=== PATIENT | female | born 1950 | race Caucasian/White ===

== ENCOUNTER 2023-07-16 17:43 | Emergency (ER) | payer MEDICARE, SELFPAY ==
--- NOTE | ~2023-07-16 | XR_ITS ---
EXAMINATION: X-RAY BILATERAL KNEES CLINICAL INFORMATION: Fall. COMPARISON: None available. TECHNIQUE: 4 views of each knee. FINDINGS: Right knee: Partially imaged lateral fixation plate in the tibia with multiple traversing screws, no evidence of hardware fracture or complication in the included portions. No acute fractures or subluxation. Mild tricompartmental degenerative osteoarthritis. No joint effusion. Mild vascular calcifications. Left knee: No acute fracture or subluxation. Mild tricompartmental degenerative osteoarthritis. Small spurring along the upper pole of the patella. No joint effusion. Mild vascular calcifications. XR/XR knee RT 4V IMPRESSION: 1. No acute fractures or subluxation. 2. Mild bilateral tricompartmental degenerative osteoarthritis. 3. Partially imaged right tibial fixation hardware without evidence of hardware complication.
--- NOTE | ~2023-07-16 | XR_ITS ---
EXAMINATION: X-RAY RIGHT AND LEFT HANDS CLINICAL INFORMATION: Fall. COMPARISON: None available. TECHNIQUE: 4 views of each hand were obtained. FINDINGS: No evidence of acute fractures or subluxation. Mild multifocal degenerative osteoarthritis with joint space narrowing and minimal marginal osteophytes, more prominent in the left hand. No osseous erosions. No abnormal soft tissue calcifications. No unexpected radiopaque foreign bodies. XR/XR hand wrist RT IMPRESSION: No acute fractures or subluxation seen in either hand. Mild multifocal degenerative osteoarthritis.
--- NOTE | ~2023-07-16 | XR_ITS ---
EXAMINATION: X-RAY BILATERAL KNEES CLINICAL INFORMATION: Fall. COMPARISON: None available. TECHNIQUE: 4 views of each knee. FINDINGS: Right knee: Partially imaged lateral fixation plate in the tibia with multiple traversing screws, no evidence of hardware fracture or complication in the included portions. No acute fractures or subluxation. Mild tricompartmental degenerative osteoarthritis. No joint effusion. Mild vascular calcifications. Left knee: No acute fracture or subluxation. Mild tricompartmental degenerative osteoarthritis. Small spurring along the upper pole of the patella. No joint effusion. Mild vascular calcifications. XR/XR knee LT 4V IMPRESSION: 1. No acute fractures or subluxation. 2. Mild bilateral tricompartmental degenerative osteoarthritis. 3. Partially imaged right tibial fixation hardware without evidence of hardware complication.
--- NOTE | ~2023-07-16 | CT_ITS ---
EXAMINATION: CT CHEST, ABDOMEN AND PELVIS WITHOUT CONTRAST. CLINICAL INFORMATION: Reason for Exam Fall. Rib fractures. COMPARISON: No pertinent prior studies are available for comparison. TECHNIQUE: Multidetector volumetric imaging was performed from the thoracic inlet through the pubic symphysis following the administration of: No contrast reaction reported Oral contrast: No Intravenous contrast: None Sagittal and coronal reformatted images were obtained on the technologist workstation. In addition, thin section, high resolution reconstruction, targeted reformatted images through the thoracic and lumbar spine were obtained with coronal and sagittal high resolution reformatted images as well. Total exam dose-length product 503 mGy-cm FINDINGS: CHEST: MEDIASTINUM: There is no mediastinal hematoma. There is no pericardial fluid. There are no enlarged lymph nodes. No suspicious abnormality esophagus VASCULAR: There is moderate coronary artery calcification. There is no thoracic aortic aneurysm. The main pulmonary artery is normal caliber. LUNG: No suspicious abnormality of the trachea. There is moderate to marked centrilobular emphysema. There is some thickening of the interlobular septa. There is no suspicious mass or evidence of pulmonary contusion. There is biapical thickening which is likely postinflammatory. PLEURA: No pneumothorax. No significant pleural fluid. Biapical pleural scarring suspected. CHEST WALL/AXILLA: No large chest wall hematoma ABDOMEN/PELVIS : LIVER : No evidence of acute liver injury. The liver contour is smooth. GALLBLADDER, AND BILIARY TREE THERE are some hypodensities near the expected region of the gallbladder. There is no biliary dilation. PANCREAS: No suspicious abnormality. SPLEEN: No evidence of splenic injury. ADRENAL GLANDS: No suspicious abnormality KIDNEYS AND URETERS: No evidence of a renal injury. There is a nonobstructing 0.4 cm calculus at the junction of the upper pole and interpolar right kidney. There is a 1 mm nonobstructing right upper pole calculus. URINARY BLADDER: No suspicious abnormality GASTROINTESTINAL TRACT: No localized colonic wall thickening. The appendix is within normal limits. There is no small bowel dilation. No suspicious abnormality of the incompletely distended stomach. No large mesenteric hematoma. VASCULAR STRUCTURES: There is no abdominal aortic aneurysm or evidence of retroperitoneal hematoma. LYMPH NODES: There are no measurably enlarged abdominal or pelvic lymph nodes. PELVIC VISCERA: There is a pessary present. The uterus is not definitely identified. No suspicious adnexal mass or collection FREE FLUID: There is no evidence of hemoperitoneum or significant intraperitoneal fluid. ABDOMINAL WALL: No significant hernia is appreciated. OSSEOUS STRUCTURES : No fracture demonstrated. No subluxation. THORACIC AND LUMBAR SPINE: No clavicle or scapula fracture. No displaced rib fracture seen. No sternal fracture seen. Normal sagittal alignment of the thoracic and lumbar spine. Vertebral body and disc heights are maintained; no compression fracture. Posterior elements intact. Mild marginal osteophytes No sacral or pelvic fracture, The visualized hips are intact. CT/CT abdomen pelvis wo IV con IMPRESSION: No mediastinal hematoma or pneumothorax. No evidence of hemoperitoneum or definite solid visceral injury. No acute fracture or subluxation. Emphysema. Biapical thickening likely postinflammatory
--- NOTE | ~2023-07-16 | CT_ITS ---
EXAMINATION: CT HEAD WITHOUT CONTRAST CT CERVICAL SPINE WITHOUT CONTRAST CT MAXILLOFACIAL WITHOUT CONTRAST CLINICAL INFORMATION: Fall. Head trauma. Facial trauma. COMPARISON: None. TECHNIQUE: Multidetector CT examination of the head is performed without contrast. Multidetector CT of the cervical spine without contrast. Multidetector CT of the maxillofacial region without contrast. Multiplanar postprocessing This CT examination was performed using dose optimization techniques as appropriate, variously including the following: *Automated exposure control *Adjustment of mA and/or kV according to patient size (this includes techniques or standardized protocols for targeted exams where dose is matched to indication/reason for exam; i.e. extremities or head) *Use of iterative reconstruction technique DLP: 956 mGy-cm FINDINGS: Head CT: There is no evidence of a recent intracranial hemorrhage or extra-axial collection. The midline structures are nondisplaced. The ventricles, cisterns, and sulci are within normal limits. There is no evidence of an intra-axial mass. There are no suspicious focal areas of abnormal brain attenuation. The wilson-white interface is within normal limits. There is no evidence of acute territorial infarct. The paranasal sinuses and mastoids are within normal limits. No fracture or fluid level demonstrated Cervical CT: There is no fracture or subluxation. No suspicious focal lesion or loss of volume. Mild to moderate narrowing of the C5/C6 and C6/C7 discs. There is some facet disease and uncovertebral joint spurring. There is pleural thickening in the apex bilaterally which is likely postinflammatory No suspicious abnormality in the region of the thyroid Maxillofacial CT: There is no acute maxillofacial fracture. There is extensive metallic artifact. No suspicious abnormality in the visualized portions of the brain globes, lenses, orbits, level of the vocal cords, epiglottis, oropharynx. The parapharyngeal tissue planes are maintained. No disruption of the temporomandibular joints. The zygomatic arches appear intact. No convincing nasal fracture. The pterygoids appear intact. There is perforation of the nasal septum which is likely chronic. CT/CT cervical spine wo IV con IMPRESSION: 1. There is no evidence of a recent intracranial hemorrhage. 2. No acute infarct. 3. No acute fracture or subluxation of the cervical spine 4. No acute maxillofacial fracture. Metal artifact.
--- NOTE | ~2023-07-16 | XR_ITS ---
EXAMINATION: X-RAY RIGHT AND LEFT HANDS CLINICAL INFORMATION: Fall. COMPARISON: None available. TECHNIQUE: 4 views of each hand were obtained. FINDINGS: No evidence of acute fractures or subluxation. Mild multifocal degenerative osteoarthritis with joint space narrowing and minimal marginal osteophytes, more prominent in the left hand. No osseous erosions. No abnormal soft tissue calcifications. No unexpected radiopaque foreign bodies. XR/XR hand wrist LT IMPRESSION: No acute fractures or subluxation seen in either hand. Mild multifocal degenerative osteoarthritis.
[2023-07-16 17:57] VITALS: BP 178/61; PULSE 70; RESP 18; TEMP 36.4; O2SAT 96; BMI 17.9
--- NOTE | 2023-07-16 18:04 | ED.GENADULT ---
HPI - General Adult General Chief complaint: Fall Stated complaint: FELL DOWN AND HIT HEAD/ON BLOOD THINNERS Time Seen by Provider: 07/16/23 17:57 History of Present Illness HPI narrative: The patient is 72-year-old woman with a history of paroxysmal atrial fibrillation on anticoagulation who tripped outside of her own house today. She apparently tripped on 1 of the straps connected to the cover of her in ground pool. She fell on the concrete walkway around the pool. She landed primarily on her right side and struck her head. She had no loss of consciousness. She presents to the emergency room for evaluation of her head injury as well as pain on the right side of her chest that hurts with breathing. She reports a sense of a small intraoral laceration inside the right upper lip. She also reports some abrasions to her hands. 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 Related Data Allergies Allergy/AdvReac Type Severity Reaction Status Date / Time Penicillins Allergy Hives Verified 07/16/23 17:57 Review of Systems Review of Systems: Yes all other systems are reviewed and are negative [facility] Social History Social History Alcohol intake: current Alcohol intake frequency: holidays/special occasions only Smoked in Last 30 Days: No Use of substances other than those prescribed or required for medical reasons: No Advance Directives: No Advance Directives Information Provided: No Physical Exam ED Vital Signs: Vital Signs - 24 hr 07/16/23 17:57 07/16/23 20:49 07/16/23 21:49 Temperature 97.6 F Pulse Rate 70 60 65 Respiratory Rate 18 16 18 Blood Pressure 178/61 H 177/64 H 162/72 H Pulse Oximetry 96 97 96 Oxygen Delivery Method Room Air Room Air Room Air BMI result Body Mass Index 17.9 Const Other: The patient is a thin 72-year-old who was awake and alert. She has obvious signs of bruising and abrasions but does not appear severely injured. HENMT Other: There is soft tissue swelling and abrasion to the skin around the right temporal region. There is very small intraoral laceration just inside the right upper lip. Dentition is intact. Patient has left-sided facial weakness which is chronic. Eyes Other: Pupils are round equal, extraocular movements are intact, no sign of ocular injury Neck Other: Some mild diffuse posterior C-spine tenderness. Chest Other: Right-sided chest wall tenderness without crepitus or subcutaneous emphysema Resp Other: Lungs are clear bilaterally. No increased work of breathing. She seems to have pain with breathing however. Cardio Other: Patient has regular rate and rhythm no murmur. GI Other: Abdomen is soft nontender Skin Other: Abrasions on both palms. Some soft tissue swelling and abrasions to the right temporal skin. Neuro Other: The patient is awake, alert, oriented, appropriate. There is left-sided facial weakness which is apparently chronic. She is otherwise neurologically intact Extrem Other: Patient has abrasions to the palms of both hands. No focal soft tissue swelling or obvious focal bony tenderness. Course Course Course Narrative: 72-year-old female presents ED for fall while trying to put [employer] lights. Patient hit head no loss of consciousness. Patient's secondary complaint right rib pain. No signs of obvious bruising. images ordered. positive for right eyebrow abrasions Medical Decision Making Medical Decision Making [facility] Narrative: Patient is a 72-year-old woman on anticoagulation for paroxysmal AFib who had a fall onto concrete. had radiology imaging ordered and resulted prior to my exam. This included a CT of the head, facial bones, cervical spine, chest, and abdomen and pelvis. Additionally she had x-rays of the knees and hands. All these studies are negative. Clinically the patient looks well. The intraoral laceration is too small to require sutures or other acute care. She is is not up-to-date on her tetanus she believes. She will therefore be given a tetanus shot. Otherwise she looks well enough for discharge. Discharge Plan Discharge Clinical Impression: Fall, Head injury, Abrasion of face, Intraoral laceration, Contusion of right chest wall, Hand abrasion Patient Disposition: Home, Self-Care Additional Instructions: You had CT scans of your brain, your facial bones, the bones of your neck, and also of your torso. These are all very reassuring. There is no sign of fractures or internal injuries. Additionally the x-rays of your hands and wrists show no sign of fractures. You seem to have bruises and abrasions but no more serious injuries. You have been given a tetanus update. Although you do not have any dangerous injury will likely be sore over the next several days. You may feel more sore before you start to feel better. Rest and take it easy. Use acetaminophen as needed for pain. Please follow-up with your regular doctor if any ongoing concerns return to the emergency department significantly worse. Referrals: Ani Baires MD [Primary Care Provider] - (Follow-up for a fall) Interventions: ED Discharge Assessment Last Done: 07/16/23 21:58 Discharge Date/Time: 07/16/23 21:59
[2023-07-16 20:49] VITALS: BP 177/64; PULSE 60; RESP 16; O2SAT 97
[2023-07-16 21:49] VITALS: BP 162/72; PULSE 65; RESP 18; O2SAT 96
== END 2023-07-16 21:59 | disposition home or self-care (01) ==
PROVIDERS: Emergency Provider Emergency Medicine; PCP Internal Medicine
DX: S00.81XA Abrasion of other part of head, initial encounter (principal); S20.211A Contusion of right front wall of thorax, initial encounter; S60.519A Abrasion of unspecified hand, initial encounter; W19.XXXA Unspecified fall, initial encounter; Y93.9 Activity, unspecified; Y92.9 Unspecified place or not applicable; Y99.9 Unspecified external cause status; I48.0 Paroxysmal atrial fibrillation; Z79.01 Long term (current) use of anticoagulants
CPT/HCPCS: 70450; 70486; 71250; 72125; 73110; 73130; 73564; 74176; 90471; 99284; 99285

== ENCOUNTER 2023-07-30 14:17 | Emergency (ER) | payer MEDICARE, SELFPAY ==
--- NOTE | ~2023-07-30 | XR_ITS ---
Examination: Bilateral knee. CLINICAL INDICATION: Fall. COMPARISON: Bilateral knee 07/16/2023. TECHNIQUE: 4 views each knee. RIGHT KNEE: There is a lateral tibial fixation plate and screws stabilizing old proximal tibial fracture. No hardware malfunction seen there is mild loss of medial and patellofemoral compartment joint space. There are no loose bodies or joint effusion. No visible acute fracture or dislocation seen. Left knee: There is mild loss of tricompartment joint space with no bony erosive changes. No visible acute fracture or dislocation seen. No joint effusion. There are no loose bodies. The soft tissues are normal. XR/XR knee RT 2V IMPRESSION: Mild bilateral tricompartmental degenerative arthritic changes. Right proximal tibial hardware is intact. There is no hardware malfunction. There is no acute fracture dislocation in either knee.
--- NOTE | ~2023-07-30 | XR_ITS ---
Examination: Bilateral knee. CLINICAL INDICATION: Fall. COMPARISON: Bilateral knee 07/16/2023. TECHNIQUE: 4 views each knee. RIGHT KNEE: There is a lateral tibial fixation plate and screws stabilizing old proximal tibial fracture. No hardware malfunction seen there is mild loss of medial and patellofemoral compartment joint space. There are no loose bodies or joint effusion. No visible acute fracture or dislocation seen. Left knee: There is mild loss of tricompartment joint space with no bony erosive changes. No visible acute fracture or dislocation seen. No joint effusion. There are no loose bodies. The soft tissues are normal. XR/XR knee LT 2V IMPRESSION: Mild bilateral tricompartmental degenerative arthritic changes. Right proximal tibial hardware is intact. There is no hardware malfunction. There is no acute fracture dislocation in either knee.
--- NOTE | ~2023-07-30 | CT_ITS ---
EXAMINATION: CT HEAD WITHOUT CONTRAST CT CERVICAL SPINE WITHOUT CONTRAST CLINICAL INFORMATION: Fall. Head strike. Patient on blood thinners. COMPARISON: CT head from 07/16/2023. TECHNIQUE: Contiguous axial imaging was performed from the skull base to vertex without intravenous administration of contrast. Contiguous axial imaging was performed from the upper chest through the skull base without intravenous administration of contrast. Coronal and sagittal reformats were obtained at the acquisition workstation. This CT examination was performed using dose optimization techniques as appropriate, variously including the following: *Automated exposure control. *Adjustment of mA and/or kV according to patient size (this includes techniques or standardized protocols for targeted exams where dose is matched to indication/reason for exam; i.e. extremities or head). *Use of iterative reconstruction technique. DLP: 793 mGy-cm FINDINGS: Head: There is no evidence of acute intracranial hemorrhage or edematous territorial infarction. Cadena-white matter differentiation is preserved. A few foci of hypoattenuation in the periventricular and deep white matter are consistent with mild microangiopathy. Proportional prominence of the ventricles and sulcal spaces without evidence of obstructive hydrocephalus. No abnormal mass effect or midline shift. No extra-axial fluid collections. Mild edema/hematoma in the right periorbital, preseptal soft tissues. No associated acute osseous abnormalities. Mild mucosal thickening of the paranasal sinuses. The mastoid air cells and middle ear cavities are clear. Dehiscence of the cartilaginous nasal septum. Cervical Spine: The atlantooccipital and atlantoaxial articulations remain well aligned. Mild reversal the normal cervical lordosis centered on C4-C5. Mild degenerative anterolisthesis of C4 on C5. Otherwise, there is anatomic alignment of the vertebral bodies and posterior elements. No evidence of acute fracture or subluxation. The vertebral body heights are maintained. Advanced degenerative disc disease at C5-C6 and C6-C7. Moderate degenerative disease from C2-C5. Facet and uncovertebral joint arthropathy leads to osseous encroachment on the neural foramina from C3-C7. There is no prevertebral soft tissue swelling. The thyroid gland and remaining cervical soft tissues are within normal limits. Extensive centrilobular emphysema the visualized upper lungs. The lung apices demonstrate no abnormalities. CT/CT cervical spine wo IV con IMPRESSION: 1. No evidence of acute intracranial hemorrhage or edematous territorial infarction. Mild underlying microangiopathy and generalized cerebral volume loss. 2. No evidence of acute fracture or traumatic subluxation of the cervical spine. Moderate multilevel degenerative spondyloarthropathy of the cervical spine. 3. Mild edema/hematoma in the right periorbital, preseptal soft tissues. No associated osseous abnormalities. 4. Emphysema.
[2023-07-30 14:19] VITALS: BP 176/84; PULSE 67; RESP 18; TEMP 36.4; O2SAT 95; BMI 17.4
[2023-07-30 15:52] VITALS: BP 167/87; PULSE 70; RESP 18; O2SAT 96
--- NOTE | 2023-07-30 16:08 | ED.FALL ---
HPI - Fall General Chief Complaint: Fall Stated Complaint: Fall/Head inj on thinners Time Seen by Provider: 07/30/23 16:03 Source: patient Mode of arrival: ambulatory Limitations: no limitations History of Present Illness HPI Narrative: Patient comes to the emergency room complaining of a mechanical fall. Patient states that she was walking out in the parking lot, there was a pothole on the ground, patient was caring a box and did not see the hole. Patient walked into the hole in tripped. Patient hit the right side of her forehead. Patient has a small superficial laceration, not bleeding. Patient is on Eliquis for atrial fibrillation. About 2 weeks ago, patient sustained a fall injuring the same side of the forehead/eyebrow. Patient states that she has no neck pain, no headache otherwise patient feels well. Patient complaining of mild bilateral knee pain but able to ambulate. Related Data Allergies Allergy/AdvReac Type Severity Reaction Status Date / Time Penicillins Allergy Hives Verified 07/30/23 14:19 Review of Systems Review of Systems: Constitutional : No Weight loss, No Fever, No Chills, No Night Sweats, No Fatigue, No Malaise ENT/Mouth : No Hearing loss, No Ear Pain, No Nasal Congestion, No Sinus Pain, No Hoarseness, No sore throat, No Rhinorrhea, No Swallowing Difficulty Eyes: No Eye Pain, No Swelling, No Redness, No Foreign Body, No Discharge, No Vision Changes Cardiovascular : No Chest Pain, No SOB, No Dyspnea on Exertion, No Orthopnea, No Edema, No Palpitations Respiratory : No Cough, No Sputum, No Wheezing, No Smoke Exposure, No Dyspnea Gastrointestinal : No Nausea, No Vomiting, No Diarrhea, No Constipation, No abdominal Pain, No Hematochezia, No Melena Genitourinary : no irregular bleeding, No Dysuria, No Urinary Frequency, No Hematuria, No Urinary Incontinence, No Urgency, No Flank Pain, No Urinary Flow Changes, No Hesitancy Musculoskeletal : No joint pain, No Myalgias, No Joint Swelling Skin : Small laceration to the right eyebrow Neuro : No Weakness, No Numbness, No Paresthesias, No Loss of Consciousness, No Dizziness, No Headache Psych : No Anxiety/Panic, No Depression, No SI/HI/AH/VH, No Social Issues, Heme/Lymph: No Bruising, No Bleeding,No Lymphadenopathy Endocrine : No Polyuria, No Polydipsia, No Temperature Intolerance [facility] Past Medical History Medical History (Updated 07/30/23 @ 17:15 by Jo-Ann Rosenberg MD) 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 Oriented X3. No acute distress. Eyes: Pupils equal, round and reactive to light. Patient's ocular movements are intact and painless ENT: Pharynx normal. Neck: Normal inspection. Neck supple. No lymph nodes noted. No crepitus CVS: Normal heart rate and rhythm. Pulses normal. Normal S1 and S2 Respiratory: No respiratory distress. Breath sounds normal. No Wheezing. No rales Abdomen: Soft and nontender. No rigidity. No distention. Skin: Skin warm and dry. Normal skin color. Normal skin turgor. There is a 0.5 cm superficial laceration below the right eyebrow, mild swelling but no bleeding. Extremities: No lower extremity edema. No Lacerations. No Rash Neuro: Oriented X 3. No motor deficit. No sensory deficit. Moving all extremities. No slurred speech. CN 2 through 12 grossly intact Psych: calm, cooperative, normal affect Medical Decision Making Medical Decision Making MDM Narrative: -patient is neurologically intact -my interpretation of x-rays of the knees: No fracture, normal alignment, hardware present -CT scan of the head and cervical spine pending -my interpretation of head CT: No intracranial bleed. -patient is asymptomatic, patient feeling much better. Differential Diagnosis Differential Diagnoses: The differential diagnosis associated with the presentation includes (Contusion, abrasion, intracranial bleed) Admission/Observation Consideration of admission/observation: Escalation of care including admission/observation considered (Patient has had 2 major falls in 2 weeks, given initial history and presentation, patient was considered) Independent Interpretation I performed an independent interpretation of an: CT Scan Radiology Impression Discussion of test interpretation with radiology: I have reviewed the radiologist's reading. Radiologist Impression: FINDINGS: Head: There is no evidence of acute intracranial hemorrhage or edematous territorial infarction. Cadena-white matter differentiation is preserved. A few foci of hypoattenuation in the periventricular and deep white matter are consistent with mild microangiopathy. Proportional prominence of the ventricles and sulcal spaces without evidence of obstructive hydrocephalus. No abnormal mass effect or midline shift. No extra-axial fluid collections. Mild edema/hematoma in the right periorbital, preseptal soft tissues. No associated acute osseous abnormalities. Mild mucosal thickening of the paranasal sinuses. The mastoid air cells and middle ear cavities are clear. Dehiscence of the cartilaginous nasal septum. Cervical Spine: The atlantooccipital and atlantoaxial articulations remain well aligned. Mild reversal the normal cervical lordosis centered on C4-C5. Mild degenerative anterolisthesis of C4 on C5. Otherwise, there is anatomic alignment of the vertebral bodies and posterior elements. No evidence of acute fracture or subluxation. The vertebral body heights are maintained. Advanced degenerative disc disease at C5-C6 and C6-C7. Moderate degenerative disease from C2-C5. Facet and uncovertebral joint arthropathy leads to osseous encroachment on the neural foramina from C3-C7. There is no prevertebral soft tissue swelling. The thyroid gland and remaining cervical soft tissues are within normal limits. Extensive centrilobular emphysema the visualized upper lungs. The lung apices demonstrate no abnormalities. CT/CT head/brain wo IV con IMPRESSION: 1. No evidence of acute intracranial hemorrhage or edematous territorial infarction. Mild underlying microangiopathy and generalized cerebral volume loss. 2. No evidence of acute fracture or traumatic subluxation of the cervical spine. Moderate multilevel degenerative spondyloarthropathy of the cervical spine. 3. Mild edema/hematoma in the right periorbital, preseptal soft tissues. No associated osseous abnormalities. 4. Emphysema. Critical Care Time Critical Care Time Critical Care Time: Yes Total Critical Care Time: 30 Attestation: I have personally provided critical care time. Time includes review of lab data, radiology results, discussion with consultants, and monitoring for potential decompensation. Intervention performed as documented. Discharge Plan Discharge Clinical Impression: Fall, Contusion Patient Disposition: Home, Self-Care Instructions: Contusion in Adults (ED), Fall Prevention (ED) Additional Instructions: Please follow-up with your primary care physician tomorrow. If you have any worsening or new symptoms, please return to the emergency room or call 911 Stand Alone Forms: Work/School Release
== END 2023-07-30 17:23 | disposition home or self-care (01) ==
PROVIDERS: Emergency Provider Emergency Medicine; PCP Internal Medicine
DX: S00.93XA Contusion of unspecified part of head, initial encounter (principal); W01.0XXA Fall on same level from slipping, tripping and stumbling without subsequent striking against object, initial encounter; Y93.89 Activity, other specified; Y92.9 Unspecified place or not applicable; Y99.9 Unspecified external cause status; I48.91 Unspecified atrial fibrillation; Z79.01 Long term (current) use of anticoagulants; M25.562 Pain in left knee; M25.561 Pain in right knee
CPT/HCPCS: 70450; 72125; 73560; 99284

== ENCOUNTER 2025-06-02 23:20 | Emergency (ER) | payer MEDICARE, SELFPAY ==
--- OUTSIDE RECORDS SUMMARY | 2024-05-14 05:30 | XMS_ITS ---
[facility] Address [address] [place] [address] Care Team Providers Care Mainframe Systems Engineer Name Role Phone HENSLEYMAURIZIO MANDEL Unavailable [phone] Medications Medication SIG (Take, Route, Frequency, Duration) Notes Start Date End Date Status Metoprolol Tartrate 25 MG 1 tablet with food Orally Twice a day Active Fluticasone Propionate 50 MCG/ACT SPRAY SPRAY 1 SPRAY INTO EACH NOSTRIL EVERY DAY FOR 30 DAYS; Duration: 8 Active Eliquis 2.5 MG as directed Orally Active Montelukast Sodium 10 MG 1 tablet Orally Once a day; Duration: 30 day(s) Active Crestor 10 MG 1 tablet Orally Once a day; Duration: 90 days Active Dupixent 200 MG/1.14ML as directed Subcutaneous Active Benzonatate 200 MG 1 capsule Orally Thr ee times a day; Duration: 30 days 03/02/2023 Active Multi Complete Activ e Estradiol 0.0375 MG/24HR 1 patch to skin Transdermal Two times a Week Active Encounters Encounter Location Date Provider Diagnosis [facility] [address] [place] [address] 05/14/2024 MAURIZIO HENSLEY Hyperlipidemia, unspecified E78.5 Assessments Encounter Date Diagnosis (ICD Code) Assessment Notes Treatment Notes Treatment Clinical Notes Section Notes 05/14/2024 Hyperlipidemia, unspecified (ICD-10 - E78.5) 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 #Hyperlipidemia: In the setting of family history of hyperlipidemia in mom. #Eczema: (Psoriasis was diagnosed in 2016, sees brick veneer maker,Her Skin rash was not improving over the years, her brick veneer maker suggested biopsy which showed eczema and not psoriasis) she is on dupixent since early 2021 and her skin lesions are healing very well. #Atrial fibrillation, diagnosed in 2016, sees cardiology, on eliques and metoprolol, and cautioned against falls. #Vaginal atrophy, on estrogen patch, history of Uterine prolapse/Fibroids status post reconstructive surgery/Including hysterectomy in 2002. 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 #Up to date on screening mammograms. #Never had a screening colonoscopy/discu ssed cologuard kit, Patient declines Plan Of Treatment Next Appt Details Provider Name:RADHACRISTOBAL AYDEN, 09:15:00 AM, [address] [place] [address], [place], [address], Progress Notes * APODACA, KEVIN KDOB:[birth year] (74 yo F)Acc No.[id number]:05/14/2024 CPE Patient: KEVIN FRENCH Provider: Savannah HENSLEY MD :1950 A ge:73 Y S ex:Female Date:05/14/2024 Address:[address] [place], [place] [id number] Subjective: * Chief Complaints: * * Medical History: * Medications: T aking Benzonatate 200 MG Capsule 1 capsule Orally Three times a day , Taking Dupixent 200 MG/1.14ML Solution Prefilled Syringe as directed Subcutaneous , Taking Multi Complete , Taking Estradiol 0.0375 MG/24HR Patch Twice Weekly 1 patch to skin Transdermal Two times a Week , Taking Metoprolol Tartrate 25 MG Tablet 1 tablet with food Orally Twice a day , Taking Eliquis 2.5 MG Tablet as directed Orally , Taking Fluticasone Propionate 50 MCG/ACT Suspension SPRAY SPRAY 1 SPRAY INTO EACH NOSTRIL EVERY DAY FOR 30 DAYS , Taking Crestor 10 MG Tablet 1 tablet Orally Once a day , Taking Montelukast Sodium 10 MG Tablet 1 tablet Orally Once a day Objective: * Vitals: Assessment: * Assessment: 1. 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 #Hyperlipidemia: In the setting of family history of hyperlipidemia in mom. #Eczema: (Psoriasis was diagnosed in 2015, sees brick veneer maker,Her Skin rash was not improving over the years, her brick veneer maker suggested biopsy which showed eczema and not psoriasis) she is on dupixent since early 2021 and her skin lesions are healing very well. #Atrial fibrillation, diagnosed in 2016, sees cardiology, on eliques and metoprolol, and cautioned against falls. #Vaginal atrophy, on estrogen patch, history of Uterine prolapse/Fibroids status post reconstructive surgery/Including hysterectomy in 2002. 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 #Up to date on screening mammograms. #Never had a screening colonoscopy/discussed cologuard kit, Patient declines. Plan: * Treatment: * Procedure Codes: 9 9199 NO SHOW OFFICE VISIT * Images: Billing Information: * Visit Code: * Procedure Codes: 77008 NO SHOW OFFICE VISIT. Care Plan Details* * Electronic signature of SHIRIN HENSLEY on 06/03/2025 at 12:54 AM EDT Sign off status: Pending * Provider: Savannah HENSLEY MD Date: Generated for Navi caceres/Bird/Lizz on: 12:54 AM EDT
--- OUTSIDE RECORDS SUMMARY | 2024-10-05 07:45 | XMS_ITS ---
Author Organization [facility] [address] Address [address] [place] [address] Care Team Providers Care Radio/Tv Technician Name Role Phone HENSLEYMAURIZIO MANDEL Unavailable [phone] SONALI CEBALLOS Unavailable [phone] REASON FOR VISIT flu-like symptoms x3 days Medications Medication SIG (Take, Route, Frequency, Duration) Notes Start Date End Date Status Montelukast Sodium 10 MG 1 tablet Orally Once a day; Duration: 30 day(s) Active Myrbetriq 25 MG 1 tablet Orally Once a day; Duration: 90 days 06/11/2024 Active Fluticasone Propionate 50 MCG/ACT SPRAY SPRAY 1 SPRAY INTO EACH NOSTRIL EVERY DAY FOR 30 DAYS; Duration: 8 Active Eliquis 2.5 MG as directed Orally Active Crestor 10 MG 1 tablet Orally Once a day; Duration: 90 days Active Metoprolol Tartrate 25 MG 1 tablet with food Orally Twice a day Active Estradiol 0.0375 MG/24HR 1 patch to skin Transdermal Two times a Week Active Multi Complete Activ e Dupixent 200 MG/1.14ML as directed Subcutaneous Active Mirabegron ER 25 MG 1 tablet Orally Once a day Active Encounters Encounter Location Date Provider Diagnosis [facility] [address] [place] [address] 10/05/2024 SONALI CEBALLOS Plan Of Treatment Next Appt Details Provider Name:MAURIZIO HENSLEY, 09:15:00 AM, [address], [place], [address], Progress Notes * KEVIN APODACA KDOB:[birth year] (74 yo F)Acc No.[id number]:10/05/2024 Progress Notes Patient: KEVIN FRENCH Provider: Carroll CEBALLOS NP :1950 A ge:73 Y S ex:Female Date:10/05/2024 Address:[address] [place] [address], [id number] Subjective: * Chief Complaints: * 1 . Flu-like symptoms x3 days. * HPI: C onstitutional: Patient is here today for sick visit evaluation Patient seen and examined. Full past medical history, social history, family history, allergies and current medications were reviewed and updated. Acute Concerns/Problem List: 10/05/2024. * ROS: A ll Other Systems: Review of Systems (ROS) A ll others negative except those mentioned in HPI. * Medical History: * Medications: T aking Mirabegron ER 25 MG Tablet Extended Release 24 Hour 1 tablet Orally Once a day , Taking Dupixent 200 MG/1.14ML [...] EVERY DAY FOR 30 DAYS , Taking Myrbetriq 25 MG Tablet Extended Release 24 Hour 1 tablet Orally Once a day , Taking Montelukast Sodium 10 MG Tablet 1 tablet Orally Once a day , Taking Crestor 10 MG Tablet 1 tablet Orally Once a day Objective: * Vitals: Assessment: Plan: * Treatment: Care Plan: * Problems: * Images: Billing Information: * Visit Code: * Procedure Codes: Care Plan Details* * Electronic signature of LUCAS CEBALLOS on 06/03/2025 at 12:54 AM EDT Sign off status: Pending * Provider: Carroll CEBALLOS NP Date: 0 10/05/2024 Generated for Navi caceres/Brid/Lizz on: 1 12:54 AM EDT History and Physical Notes * HPI (History of Present Illness) Category Sub-Category Detail Notes Category Not es Constitutional Patient is here today for sick visit evaluation Patient seen and examined. Full past medical history, social history, family history, allergies and current medications were reviewed and updated. Acute Concerns/Problem List: 10/05/2024
--- OUTSIDE RECORDS SUMMARY | 2025-05-07 10:00 | XMS_ITS ---
Author Organization [facility] [address] Address [address] [place] [address] Care Team Providers Care Group Therapy Counselor Name Role Phone MAURIZIO HENSLEY Unavailable [phone] ELY KIM Unavailable [phone] REASON FOR VISIT cough, sorethroat and congestion Medications Medication SIG (Take, Route, Frequency, Duration) Notes Start Date End Date Status Eliquis 2.5 MG as directed Orally Active Fluticasone Propionate 50 MCG/ACT SPRAY SPRAY 1 SPRAY INTO EACH NOSTRIL EVERY DAY FOR 30 DAYS; Duration: 8 Active Mirabegron ER 25 MG TAKE 1 TABLET BY GRICELDA EVERY DAY FOR 90 DAYS; Duration: 90 Active Crestor 10 MG 1 tablet Orally Once a day; Duration: 90 days Active Montelukast Sodium 10 MG 1 tablet Orally Once a day; Duration: 30 day(s) Active Dupixent 200 MG/1.14ML as directed Subcutaneous Active Multi Complete Activ e Estradiol 0.0375 MG/24HR 1 patch to skin Transdermal Two times a Week Active Metoprolol Tartrate 25 MG 1 tablet with food Orally Twice a day Active Encounters Encounter Location Date Provider [facility] [address] [place] [address] 05/07/2025 ELY KIM Plan Of Treatment Next Appt Details Provider Name:MAURIZIO HENSLEY, 09:15:00 AM, [address], [place], [address], Progress Notes * KEVIN APODACA KDOB:[birth year] (74 yo F)Acc No.[id number]:05/07/2025 Progress Notes Patient: KEVIN FRENCH Provider: Sekou HERNANDEZ PA-C :1950 A ge:74 Y S ex:Female Date:05/07/2025 Address:[address] [place] [address] [place], [id number] Subjective: * Chief Complaints: * 1 . Cough, sorethroat and congestion. * Medical History: * Medications: T aking Dupixent 200 MG/1.14ML Solution Prefilled Syringe as [...] tablet Orally Once a day , Taking Mirabegron ER 25 MG Tablet Extended Release 24 Hour TAKE 1 TABLET BY MOUTH EVERY DAY FOR 90 DAYS Objective: * Vitals: Assessment: Plan: * Treatment: Care Plan: * Problems: * Images: Billing Information: * Visit Code: * Procedure Codes: Care Plan Details* * Electronic signature of SONY KIM PA-C on 06/03/2025 at 12:54 AM EDT Sign off status: Pending * Provider: Sekou HERNANDEZ PA-C Date: 0 05/07/2025 Generated for Navi caceres/Bird/Lizz on: 1 12:54 AM EDT
--- NOTE | ~2025-06-02 | XR_ITS ---
CLINICAL HISTORY: sob 2 view chest x-ray Comparison: None provided Findings: The lungs are clear. Normal size heart. Osteopenia. No acute fracture. IMPRESSION: 1. No acute findings. This document has been electronically signed by: Dakotah Hare MD on 06/02/2025 23:55:24
--- NOTE | 2025-06-02 23:22 | ECG_ITS ---
Test Reason : chest tightness Blood Pressure : */* mmHG Vent. Rate : 80 BPM Atrial Rate : 80 BPM P-R Int : 166 ms QRS Dur : 134 ms QT Int : 418 ms P-R-T Axes : 85 82 51 degrees QTcB Int : 482 ms Normal sinus rhythm Right bundle branch block Abnormal ECG No previous ECGs available Referred By: Generic ED Physician Electronically Signed By: NAS TRINIDAD MD
[2025-06-02 23:28] VITALS: BP 173/83; PULSE 80; RESP 16; TEMP 36.5; O2SAT 93; BMI 18.3
--- NOTE | 2025-06-02 23:30 | ED_ITS ---
[facility] - General Adult General Chief complaint: Dyspnea Stated complaint: History AFIB, chest and throat tightness, SOB Time Seen by Provider: 06/02/25 23:45 Source: patient Mode of arrival: ambulatory Limitations: no limitations History of Present Illness ED Provider: Dr. Lake [facility] narrative: This is a 74-year-old female history of AFib on Eliquis and metoprolol presented hospital today for evaluation of shortness of breath and chest tightness. Patient was recent diagnosed with COVID at the end of April. However patient has been having some dry cough. She stated that this cough was initially productive however returned to a dry cough. She is complaining of some increased shortness of breath. Related Data Previous Rx's ?Medication ?Instructions ?Recorded albuterol sulfate 90 mcg/actuation 2 inh inhalation Q4 H PRN shortness 06/03/25 breath activated powder inhaler of breath #1 ea prednisone 50 mg tablet 50 mg PO DAILY 5 days #5 tab s 06/03/25 Allergies Allergy/AdvReac Type Severity Reaction Status Date / Time Penicillins Allergy Hives Verified 06/02/25 23:30 Review of Systems 2 Review of Systems: Pertinent review of systems as mentioned in [facility]. All other system otherwise negative. [facility] Past Medical History [facility] Narrative: Medical history as mentioned in [facility] Medical History (Updated 06/03/25 @ 03:37 by Jacey Figueroa DO) Hx of penitentiary use of blood thinners Atrial fibrillation Social History Social History Alcohol intake: current Alcohol intake frequency: holidays/special occasions only Smoked in Last 30 Days: No Use of substances other than those prescribed or required for medical reasons: No Advance Directives: No Advance Directives Information Provided: Yes Do you have a plan to hurt others: No Plan Physical Exam ED Exam Exam: General: Pleasant, no distress, interacting appropriately Head: Normacephalic, atraumatic ENT: oral mucosa moist, neck supple, no tracheal deviation Cardiovascular: regular rate, regular rhythm, no murmurs, rubbing, gallops Respiratory: Diminished lung sounds bilaterally Neurological: Awake and alert, no facial droop noted Skin: Warm and dry Psychiatric: Appropriate mood and thoughts Vital Signs: Vital Signs - 24 hr 06/02/25 23:28 06/03/25 00:17 06/03/25 01:25 Temperature 97.7 F Pulse Rate 80 80 Respiratory Rate 16 18 Blood Pressure 173/83 H Pulse Oximetry 93 90 L Oxygen Delivery Method Room Air 06/03/25 03:22 Temperature 97.7 F Pulse Rate 73 Respiratory Rate 19 Blood Pressure 133/80 Pulse Oximetry 95 Oxygen Delivery Method Room Air BMI result Body Mass Index 18.3 Course Course Course Narrative: RME: 74-year-old female history of AFib on Eliquis and metoprolol presented hospital today for evaluation of chest tightness throat tightness and coughing. No sign of stridor on evaluation. Patient has recently diagnosed with COVID at the end of April. Some erythema in the back of the oropharynx. Does not appear to be in acute respiratory distress. Medical screening exam performed. Medications Administered Discontinued Medications Generic Name Dose Route Start Last Admin Trade Name Freq PRN Reason Stop Dose Admin Albuterol Sulfate 2.5 mg 06/03/25 00:11 06/03/25 00:16 Albuterol Sulfate (0.083%) 2.5 Mg/3 Ml Vial.Neb INHALE 06/03/25 00:12 2.5 mg ONCE ONE Administration Albuterol/Ipratropium 3 ml 06/03/25 01:26 06/03/25 02:49 Albuterol/Iprat 2.5/0.5mg 3 Ml Ampul.Neb INHALE 06/03/25 01:27 Not Given ONCE ONE Magnesium Sulfate 2 gm in 50 mls @ 50 mls/hr 06/03/25 01:26 06/03/25 03:24 Magnesium Sulfate/H2o IV 06/03/25 02:25 Infused ONCE ONE Infusion Prednisone 40 mg 06/03/25 01:21 06/03/25 01:37 Prednisone 20 Mg Tablet PO 06/03/25 01:22 40 mg ONCE ONE Administration Medical Decision Making Medical Decision Making [facility] Narrative: 74-year-old female presented hospital today for chest tightness and cough. History of AFib on Eliquis and metoprolol. Suspect patient likely has inflammation in her chest. We will plan to give patient a dose of breathing treatment here. Prednisone IV magnesium will be initiated. Chest x-ray will be obtained. EKG did not show any signs of STEMI. Troponin is negative. Did not see any signs of consolidation on chest x-ray. However did show some mild transaminitis. Slight bump in BNP at 376. Patient does not appear to be fluid overloaded my exam. Patient was ambulated with pulse ox. Satting at 90%. Patient will be signed out to oncoming provider pending reassessment after medication. Additional DuoNeb was ordered for the patient. 3:39 AM 06/03/2025 (Dr. Jacey Figueroa, D.O.) patient feeling improved after treatment today. Her D-dimer is negative, low risk for pulmonary embolism. Ambulatory pulse ox went as low as 87% however, the patient did not have any symptoms of dyspnea and her heart rate remained in the 80s. She jumped back into the low 90s with rest. Using shared decision making, plan for discharge home to follow-up with primary care and/or specialist. Patient understands and agrees with plan for discharge. Discharged home in stable condition. Differential Diagnosis Differential Diagnoses: The differential diagnosis associated with the presentation includes Bronchitis, pneumonia, URI Lab Data MDM Lab Attestation statement: I reviewed the patient's lab results. 06/02/25 23:47 06/02/25 23:47 Labs: Lab Results 06/02/25 06/03/25 Range/Units 23:47 02:48 WBC 7.1 (4.8-10.8) X10*3/uL RBC 4.21 (4.20-5.50) X10*6/uL Hgb 12.5 (12.0-16.0) g/dl Hct 38.4 (37.0-47.0) % MCV 91.2 (80.0-98.0) fL MCH 29.7 (27.0-33.0) pg MCHC 32.6 (31.0-35.0) g/dl RDW 13.4 (11.0-16.0) % Plt Count 231 (160-400) X10*3/uL MPV 9.5 (9.4-12.3) fL Immature Gran % (Auto) 0.3 (0.0-0.4) % Neut % (Auto) 67.6 (45-73) % Lymph % (Auto) 16.1 L (20-40) % [place] % (Auto) 10.9 (2-11) % Eos % (Auto) 4.4 H (0-4) % Baso % (Auto) 0.7 (0-2) % Lymph # (Auto) 1.1 L (1.2-4.9) X10*3/uL [place] # (Auto) 0.8 (0.1-1.2) X10*3/uL Eos # (Auto) 0.3 (0.0-0.4) X10*3/uL Baso # (Auto) 0.1 (0.0-0.2) X10*3/uL Abs Immat Gran (auto) 0.02 (0.00-0.03) X10*3/uL Absolute Neuts (auto) 4.8 (2.0-8.3) x10*3/uL Absolute Nucleated RBC 0.000 (0.0-0.012) X10*3/uL Nucleated RBC % (auto) 0.0 (0.0-0.2) /100WBC PT 16.6 H (10.9-12.4) SEC INR 1.4 H (0.9-1.1) D-Dimer High Sensitivty < 150 NG/ML Sodium 141 (135-145) mmol/L Potassium 3.7 (3.3-5.1) mmol/L Chloride 108 (96-108) mmol/L Carbon Dioxide 24 (22-29) mmol/L Anion Gap 13 (12-20) BUN 15 (9-16) mg/dL Creatinine 0.56 (0.5-1.4) mg/dL Estim Creat Clear Calc 75.0 Estimated GFR > 60 Random Glucose 96 (60-115) mg/dL Calcium 9.4 (8.4-10.2) mg/dL Magnesium 2.1 (1.6-2.6) mg/dL Total Bilirubin 0.7 (0.0-1.0) mg/dL AST 66 H (5-31) U/L ALT 58 H (0-31) U/L Alkaline Phosphatase 87 (39-117) U/L Troponin I High Sens < 2.7 (<3.5-17.0) ng/L NT-Pro-B Natriuret Pep 376.3 H (<300) pg/mL Total Protein 7.0 (6.5-8.0) g/dL Albumin 4.5 (3.5-5.0) g/dL COVID-19 (VITALY) Negative (Negative) COVID-19 Clin Com See Note Influenza Type A (KEVIN) Negative (Negative) Influenza Type B (KEVIN) Negative (Negative) Influenza A & B Note See Note Independent Interpretation I performed an independent interpretation of an: EKG and Plain X-Ray Radiology Impression Discussion of test interpretation with radiology: I have reviewed the radiologist's reading. Discharge Plan Discharge Clinical Impression: Acute bronchitis with bronchospasm Patient Disposition: Home, Self-Care Instructions: Bronchospasm (ED) Additional Instructions: Your clinical picture today is most consistent with bronchitis and bronchospasm. This can happen after being infected with a respiratory virus like COVID-19. Use your inhaler if you are having a coughing fit or if you feel like your breathing is labored. Take all of the prednisone for the next 5 days until the course is completed. Do not stop this medication early when you start to feel better. Be sure to take it with food. Return to the emergency department immediately with any new or worsening symptoms including: Worsening shortness of breath despite inhaler use, fevers greater than 100?, vomiting, bloody stools, any new symptom that concerns you. Call 911 with any medical emergency. Prescriptions: New prednisone 50 mg tablet 50 mg PO DAILY 5 Days Qty: 5 0RF albuterol sulfate 90 mcg/actuation aerosol powdr breath activated 2 inh inhalation Q4H PRN (Reason: shortness of breath) Qty: 1 0RF Print Language: Malagasy
[2025-06-02 23:53] LABS: Hematocrit 38.4 % (37.0-47.0); Hemoglobin 12.5 g/dl (12.0-16.0); Imm Gran Abs Auto 0.02 X10*3/uL (0.00-0.03); Imm Gran Pct Auto 0.3 % (0.0-0.4); Lymphocytes Absolute Auto 1.1 X10*3/uL (1.2-4.9); MANUAL DIFF FLAG NO; Mean Corpuscular HGB Conc 32.6 g/dl (31.0-35.0); Mean Corpuscular Hemoglobin 29.7 pg (27.0-33.0); Mean Corpuscular Volume 91.2 fL (80.0-98.0); NRBC Abs Auto 0.000 X10*3/uL (0.0-0.012); NRBC Pct Auto 0.0 /100WBC (0.0-0.2); Platelet Count 231 X10*3/uL (160-400); Red Blood Count 4.21 X10*6/uL (4.20-5.50); White Blood Count 7.1 X10*3/uL (4.8-10.8)
[2025-06-03] LABS: INTERNATIONAL NORM RATIO 1.4 (0.9-1.1); Prothrombin Time 16.6 SEC (10.9-12.4)
[2025-06-03 00:05] LABS: Alanine Aminotransferase 58 U/L (0-31); Albumin Level 4.5 g/dL (3.5-5.0); Alkaline Phosphatase 87 U/L (39-117); Anion Gap 13 (12-20); Aspartate Amino Transferase 66 U/L (5-31); Blood Urea Nitrogen 15 mg/dL (9-16); Calcium 9.4 mg/dL (8.4-10.2); Carbon Dioxide 24 mmol/L (22-29); Chloride 108 mmol/L (96-108); Creatinine Clr Calc Pharmacy 75.0; Estimated Glomerular Filt Rate > 60; Magnesium 2.1 mg/dL (1.6-2.6); Potassium 3.7 mmol/L (3.3-5.1); Sodium 141 mmol/L (135-145); Total Protein 7.0 g/dL (6.5-8.0)
[2025-06-03 00:12] LABS: NT Pro B Type Natriuretic Pept 376.3 pg/mL (<300)
[2025-06-03 00:16] LABS: Troponin-I High Sensitivity < 2.7 ng/L (<3.5-17.0)
[2025-06-03] MEDS: Albuterol Sulfate (0.083%) 2.5 MG/3 ML VIAL.NEB INHALE (00:16)
[2025-06-03 00:17] VITALS: PULSE 80; RESP 18; O2SAT 97
--- OUTSIDE RECORDS SUMMARY | 2025-06-03 00:54 | XMS_ITS ---
Author Name [facility] Organization Unknown Care Team Organization Name Specialty Phone Email Start Date End Da te [facility] 02/29/2024 05/22/2024 [facility] 08/22/2022 05/22/2024
--- OUTSIDE RECORDS SUMMARY | 2025-06-03 00:55 | XMS_ITS | Patient Health Record ---
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 Metabolic Panel [id number] Reviewed date:06/18/2024 02:35:59 PM Interpretation: Performing Lab:[facility], [address] [place] [address], Phone - [phone], Director - Cindy Notes/Report: Glucose 91 70-99 mg/dL BUN 12 8-27 mg/dL Creatinine 0.42 0.57-1.00 mg/dL eGFR 103 >59 mL/min/1.73 BUN/Creatinine Ratio 29 12-28 Sodium 142 134-144 mmol/L Potassium 4.0 3.5-5.2 mmol/L Chloride 106 96-106 mmol/L Carbon Dioxide, Total 21 20-29 mmol/L Calcium 9.2 8.7-10.3 mg/dL Protein, Total 6.8 6.0-8.5 g/dL Albumin 4.6 3.8-4.8 g/dL Globulin, Total 2.2 1.5-4.5 g/dL Bilirubin, Total 0.6 0.0-1.2 mg/dL Alkaline Phosphatase 81 44-121 IU/L AST (SGOT) 24 0-40 IU/L ALT (SGPT) 20 0-32 IU/L Lipid Panel-[id number] Reviewed date:06/27/2024 11:14:56 AM Interpretation: Performing Lab:[facility] [place], [address] [place] [address], Phone - [phone], Director - Cindy Notes/Report: Cholesterol, Total 178 100-199 mg/dL Triglycerides 187 0-149 mg/dL HDL Cholesterol 71 >39 mg/dL VLDL Cholesterol Erik 31 5-40 mg/dL LDL Chol Calc (NIH) 76 0-99 mg/dL Vitamin D, 32-[id number] Reviewed date:06/27/2024 11:16:58 AM Interpretation: Performing Lab:[facility] [place], [address] [place] [address], Phone - [phone], Director - Cindy Notes/Report: Vitamin D, 25-Hydroxy 23.6 30.0-100.0 ng/mL Vitamin D deficiency has been defined by the [place] of [employer] and an Endocrine Society practice guideline as a level of serum 25-OH vitamin D less than 20 ng/mL (1,2). The Endocrine Society went on to further define vitamin D insufficiency as a level between 21 and 29 ng/mL (2). 1. IOM ([place] of [employer]). 2010. Dietary reference intakes for calcium and D. [place]: The National Academies Press. 2. Maru MF, Meagan NC, Alivia VANCE, et al. Evaluation, treatment, and prevention of vitamin D deficiency: an Endocrine Society clinical practice guideline. JCEM. 2010; 96(7):1911-30. CBC With Differential/Platel et-[id number] Reviewed date:06/18/2024 02:33:47 PM Interpretation: Performing Lab:[facility] [place], [address] [facility], [place], Phone - [phone], Director - Cindy Notes/Report: WBC 3.8 3.4-10.8 x10E3/uL RBC 4.05 3.77-5.28 x10E6/uL Hemoglobin 12.6 11.1-15.9 g/dL Hematocrit 38.3 34.0-46.6 % MCV 95 79-97 fL MCH 31.1 26.6-33.0 pg MCHC 32.9 31.5-35.7 g/dL RDW 12.3 11.7-15.4 % Platelets 186 150-450 x10E3/uL Neutrophils 65 Not Estab. % Lymphs 22 Not Estab. % Monocytes 8 Not Estab. % Eos 4 Not Estab. % Basos 0 Not Estab. % Neutrophils (Absolute) 2.4 1.4-7.0 x10E3/uL Lymphs (Absolute) 0.8 0.7-3.1 x10E3/uL Monocytes(Absolute) 0.3 0.1-0.9 x10E3/uL Eos (Absolute) 0.2 0.0-0.4 x10E3/uL Baso (Absolute) 0.0 0.0-0.2 x10E3/uL Immature Granulocytes 1 Not Estab. % Immature Grans (Abs) 0.0 0.0-0.1 x10E3/uL Reason For Referral No Information Medications Medication SIG (Take, Route, Frequency, Duration) Notes Start Date End Date Status Crestor 10 MG 1 tablet Orally Once a day; Duration: 90 days Active Montelukast Sodium 10 MG 1 tablet Orally Once a day; Duration: 30 day(s) Active Mirabegron ER 25 MG TAKE 1 TABLET BY GRICELDA TH EVERY DAY FOR 90 DAYS; Duration: 90 Active Dupixent 200 MG/1.14ML as directed Subcutaneous Active Estradiol 0.0375 MG/24HR 1 patch to skin Transdermal Two times a Week Active Metoprolol Tartrate 25 MG 1 tablet with food Orally Twice a day Active Eliquis 2.5 MG as directed Orally Active Fluticasone Propionate 50 MCG/ACT SPRAY SPRAY 1 SPRAY INTO EACH NOSTRIL EVERY DAY FOR 30 DAYS; Duration: 8 as needed Active Immunizations Vaccine Route Administration Date Status Comme nts Pfizer Covid-19 Vaccine Unknown 10/20/2020 Administered Pfizer Covid-19 Vaccine Unknown 11/10/2020 Administered Pfizer Covid-19 Vaccine Unknown 05/27/2021 Administered Problems Problem Type SNOMED Code ICD Code Onset Dates Problem Status W/U Status Risk Notes Problem Information temporarily unavailable Vitamin D deficiency, unspecified (E55.9) Active confirmed Problem Information temporarily unavailable Hyperlipidemia, unspecified (E78.5) Active confirmed Problem Information temporarily unavailable Paroxysmal atrial fibrillation (I48.0) Active confirmed Problem Information temporarily unavailable Psoriasis, unspecified (L40.9) Active confirmed Problem Information temporarily unavailable Overactive bladder (N32.81) Active confirmed Problem Information temporarily unavailable Diarrhea, unspecified (R19.7) Active confirmed Problem Information temporarily unavailable Encounter for screening for osteoporosis (Z13.820) Active confirmed Problem Information temporarily unavailable Hyperlipidemia, unspecified (E78.5) Active confirmed Problem Information temporarily unavailable Leg swelling (M79.89) Active confirmed Problem Information temporarily unavailable Adult general medical exam (Z00.00) Active confirmed Problem Information temporarily unavailable Atrial fibrillation, unspecified type (I48.91) Active confirmed Problem Information temporarily unavailable Annual physical exam (Z00.00) Active confirmed Problem Information temporarily unavailable Sinusitis, unspecified chronicity, unspecified location (J32.9) Active confirmed Problem Information temporarily unavailable Vitamin D deficiency (E55.9) Active confirmed Problem Information temporarily unavailable Hypertriglyceridemia (E78.1) Active confirmed Problem Information temporarily unavailable Body aches (R52) Active confirmed Problem Information temporarily unavailable Lipid screening (Z13.220) Active confirmed Problem Information temporarily unavailable COVID-19 virus infection (U07.1) Active confirmed Vital Signs Heart Rate 82 /min 05/21/2025 Oximetry 95 % 05/21/2025 Blood pressure diastolic 80 mm Hg 05/21/2025 Height 65 in 05/21/2025 Blood pressure systolic 122 mm Hg 05/21/2025 Weight 118.4 lbs 05/21/2025 BMI 19.7 kg/m2 05/21/2025 Encounters Encounter Location Date Provider Diagnosis [facility] [address] [place] [address] 06/11/2024 PATRICIA NADJA Vitamin D deficiency E55.9 ; General medical exam Z00.00 ; Hypertriglyceridemia E78.1 ; Atrial fibrillation, unspecified type I48.91 ; Chronic eczema L30.9 and Overactive bladder N32.[address] [facility] [address] [place] [address] 11/19/2024 MAURIZIO BAIRES Adult general medica l exam Z00.[address] [facility] [address] [place] [address] 05/07/2025 Wilfrido Pendleton Acute cough R05.1 ; COVID-19 determined by clinical diagnostic criteria U07.1 ; Sore throat J02.9 ; Paroxysmal atrial fibrillation I48.0 and Blood pressure check Z01.[address] [facility] [address] [place] [address] 05/21/2025 MAURIZIO BAIRES Hyperlipidemia, unsp ecified E78.5 ; Atrial fibrillation, unspecified type I48.91 ; Eczema, unspecified type L30.9 ; Dry cough R05.8 and Vitamin D deficiency E55.9 [facility] [address] [place] [address] 07/04/2024 MAURIZIO BAIRES [facility] [address] [place] [address] 08/21/2024 MAURIZIO BAIRES [facility] [address] [place] [address] 09/24/2024 MAURIZIO BAIRES [facility] [address] [place] [address] 09/24/2024 MAURIZIO BAIRES Hyperlipidemia, unsp ecified E78.5 [facility] [address] [place] [address] 10/04/2024 MAURIZIO BAIRES [facility] [address] [place] [address] 12/03/2024 MAURIZIO BAIRES [facility] [address] [place] [address] 12/30/2024 MAURIZIO BAIRES [facility] [address] [place] [address] 02/27/2025 MAURIZIO BAIRES [facility] [address] [place] [address] 05/07/2025 MAURIZIO BAIRES [facility] [address] [place] [address] 05/07/2025 Wilfrido Pendleton [facility] [address] [place] [phone] 05/15/2025 Wilfrido Núñez Assessments Encounter Date Diagnosis (ICD Code) Assessment Notes Treatment Notes Treatment Clinical Notes Section Notes 06/11/2024 Vitamin D deficiency (ICD-10 - E55.9) Darleen is a 73-year-old female present today for CPE. #Eczema: Patient followed by dermatology and sees every 6 months. Well-managed. Currently getting Dupixent 200 mg injections. Plan to continue with dermatology recommendations. #Atrial fibrillation: Patient followed by cardiology and has follow-up every 6 months as well. Currently on Eliquis 2.5 mg once a day as well as metoprolol 25 mg twice. Denies any recent episode of atrial fibrillation or experiencing any heart palpitations. Denies any shortness of breath. Plan to continue with cardiology recommendations. # Overactive bladder: Patient prescribed mirabegron 25 mg p.o. once daily states that she was previously prescribed Myrbetriq, which was a smaller supply at the pharmacy. Would like us to prescribe brand-name refill prescription. Otherwise managing well. # Hypertriglyceridemi a: Elevated triglycerides of 187. This is a new finding and labs in the past have had lipids all within normal limits. Patient states that she has been without her Crestor and has since recently began taking it. Recommended a fish oil or niacin supplement. Avoid alcohol consumption. Recommended increase routine exercise as well a well balanced diet increasing fiber, fruits and vegetables and limiting processed foods. Will consider fibrate use if triglycerides continue to be elevated. Plan to continue to monitor and repeat blood work for in 5 months. # Vitamin D deficiency: Low vitamin D of 23.6. Recommended [id number] vitamin D supplement. # Prevention: Patient not up-to-date on influenza. Up-to-date on COVID including boosters. Not up-to-date on pneumonia or shingles. Discussed the importance of the pneumococcal vaccine in preventing pneumonia and hospitalization. Discussed the importance of the shingles vaccine in preventing shingles and has long-lasting complications. Patient defers at this time. Up-to-date on tetanus, 2020. Up-to-date on mammogram, 2023. Up-to-date on colonoscopy. Up-to-date on bone density, 2023. Up-to-date on Pap smear with next scheduled for August 2024. All other labs within normal limits. Plan for patient to repeat blood work including lipids and vitamin D prior to next visit. Follow-up already scheduled for 11/19/2024. Patient seen and examined. Comprehensive discussion was done on the following. 1. Nutrition: It is important to follow a healthy diet based on lots of vegetables and legumes and good fat. Avoid processed food and processed carbohydrates. Prepare your own meals. Read labels and avoid high fructose corn syrup, processed chemicals added to increase shelf life and preprepared meals. Avoid fast foods. Eat slowly and plan meals for a week. Try to count calories and be mindful of daily calorie intake. Get into the habit of keeping an eye on your weight by using an appropriate scale. Learn to log exercise and discussed fitness Apps like [employer] which can help keep log off calories taken versus calories burned. Local food should be preferred. Discussed Dirty Dozen Versus Clean Fifteen. Discussed healthy supplements like fish oil, Tumeric, Curcumin, Melatonin, Resveratrol, Probiotics, Vitamin-D, Alpha-Lipoic acid, Vitamin-D and coconut oil. 2. It is important to exercise regularly. Is a good habit to walk at least 30 minutes a day. Gentle weightlifting with standard precautions to protect the back. Finding activity like cycling or hiking and get into the habit of engaging in it. Stretching before and after the exercises important. It is also important to contact me if there are any problems like shortness of breath, chest pain, back pain and joint or muscle pain associated with the exercise. 3. Discussed age appropriate screening guidelines. Colonoscopy needs to start at age 50 with stool for occult blood as appropriate. There is a new test that can test for genetic abnormalities in the stool sample, Cologuard. This would not replace a colonoscopy but could be used as a screening tool for patients who do not want a colonoscopy. We discussed the importance of early detection of colon cancer. 4. Discussed current PSA screening. PSA screening can be done in most patients between age 50 and 65. However early detection of prostate cancer needs to carefully be balanced with complications with treatment. These include incontinence, impotence etc. Each patient should decide if they would like to have this test. 5. Discussed safe driving and no use of smart phone while driving 6. Age-appropriate immunizations were discussed. A tetanus booster is needed every 10 years. Flu vaccine is recommended every year just before the start of the flu season. Shingles vaccine is recommended after age 50 but not all insurances cover it. Pneumonia vaccine is given after age 65 unless there are certain comorbidities for which it is started earlier. 7. Diagnostic labs were discussed. These could include/not limited to CBC CMP and lipids with fasting blood glucose and insulin levels. Vitamin D and hemoglobin A1c testing might be appropriate. All questions answered to patients satisfaction. Patient verbalized understanding of diagnosis and treatments explained. To call sooner prior to next visit it any questions/concerns arise. Case discussed with collaborating physician Dr. Baires who reviewed the assessment and plan. Chart, medications, labs, vital signs reviewed. Dictation was accomplished with the use of [employer] voice recognition software, prone to medical misidentifications and grammatical errors. This is unintentional and the practitioner does try to identify and correct these, but some could still be present. Please do not hesitate to contact practitioner for clarification. 06/11/2024 General medical exam (ICD-10 - Z00.00) Darleen is a 73-year-old female present today for CPE. #Eczema: Patient followed by dermatology and sees every 6 months. Well-managed. Currently getting Dupixent 200 mg injections. Plan to continue with dermatology recommendations. #Atrial fibrillation: Patient followed by cardiology and has follow-up every 6 months as well. Currently on Eliquis 2.5 mg once a day as well as metoprolol 25 mg twice. Denies any recent episode of atrial fibrillation or experiencing any heart palpitations. Denies any shortness of breath. Plan to continue with cardiology recommendations. # Overactive bladder: Patient prescribed mirabegron 25 mg p.o. once daily states that she was previously prescribed Myrbetriq, which was a smaller supply at the pharmacy. Would like us to prescribe brand-name refill prescription. Otherwise managing well. # Hypertriglyceridemi a: Elevated triglycerides of 187. This is a new finding and labs in the past have had lipids all within normal limits. Patient states that she has been without her Crestor and has since recently began taking it. Recommended a fish oil or niacin supplement. Avoid alcohol consumption. Recommended increase routine exercise as well a well balanced diet increasing fiber, fruits and vegetables and limiting processed foods. Will consider fibrate use if triglycerides continue to be elevated. Plan to continue to monitor and repeat blood work for in 5 months. # Vitamin D deficiency: Low vitamin D of 23.6. Recommended [id number] vitamin D supplement. # Prevention: Patient not up-to-date on influenza. Up-to-date on COVID including boosters. Not up-to-date on pneumonia or shingles. Discussed the importance of the pneumococcal vaccine in preventing pneumonia and hospitalization. Discussed the importance of the shingles vaccine in preventing shingles and has long-lasting complications. Patient defers at this time. Up-to-date on tetanus, 2020. Up-to-date on mammogram, 2023. Up-to-date on colonoscopy. Up-to-date on bone density, 2023. Up-to-date on Pap smear with next scheduled for August 2024. All other labs within normal limits. Plan for patient to repeat blood work including lipids and vitamin D prior to next visit. Follow-up already scheduled for 11/19/2024. Patient seen and examined. Comprehensive discussion was done on the following. 1. Nutrition: It is important to follow a healthy diet based on lots of vegetables and legumes and good fat. Avoid processed food and processed carbohydrates. Prepare your own meals. Read labels and avoid high fructose corn syrup, processed chemicals added to increase shelf life and preprepared meals. Avoid fast foods. Eat slowly and plan meals for a week. Try to count calories and be mindful of daily calorie intake. Get into the habit of keeping an eye on your weight by using an appropriate scale. Learn to log exercise and discussed fitness Apps like [employer] which can help keep log off calories taken versus calories burned. Local food should be preferred. Discussed Dirty Dozen Versus Clean Fifteen. Discussed healthy supplements like fish oil, Tumeric, Curcumin, Melatonin, Resveratrol, Probiotics, Vitamin-D, Alpha-Lipoic acid, Vitamin-D and coconut oil. 2. It is important to exercise regularly. Is a good habit to walk at least 30 minutes a day. Gentle weightlifting with standard precautions to protect the back. Finding activity like cycling or hiking and get into the habit of engaging in it. Stretching before and after the exercises important. It is also important to contact me if there are any problems like shortness of breath, chest pain, back pain and joint or muscle pain associated with the exercise. 3. Discussed age appropriate screening guidelines. Colonoscopy needs to start at age 50 with stool for occult blood as appropriate. There is a new test that can test for genetic abnormalities in the stool sample, Cologuard. This would not replace a colonoscopy but could be used as a screening tool for patients who do not want a colonoscopy. We discussed the importance of early detection of colon cancer. 4. Discussed current PSA screening. PSA screening can be done in most patients between age 50 and 65. However early detection of prostate cancer needs to carefully be balanced with complications with treatment. These include incontinence, impotence etc. Each patient should decide if they would like to have this test. 5. Discussed safe driving and no use of smart phone while driving 6. Age-appropriate immunizations were discussed. A tetanus booster is needed every 10 years. Flu vaccine is recommended every year just before the start of the flu season. Shingles vaccine is recommended after age 50 but not all insurances cover it. Pneumonia vaccine is given after age 65 unless there are certain comorbidities for which it is started earlier. 7. Diagnostic labs were discussed. These could include/not limited to CBC CMP and lipids with fasting blood glucose and insulin levels. Vitamin D and hemoglobin A1c testing might be appropriate. All questions answered to patients satisfaction. Patient verbalized understanding of diagnosis and treatments explained. To call sooner prior to next visit it any questions/concerns arise. Case discussed with collaborating physician Dr. Baires who reviewed the assessment and plan. Chart, medications, labs, vital signs reviewed. Dictation was accomplished with the use of [employer] voice recognition software, prone to medical misidentifications and grammatical errors. This is unintentional and the practitioner does try to identify and correct these, but some could still be present. Please do not hesitate to contact practitioner for clarification. 09/24/2024 Hyperlipidemia, unspecified (ICD-10 - E78.5) 11/19/2024 Adult general medica l exam (ICD-10 - Z00.00) Patient seen and examined. Comprehensive discussion was done on the following. 1. Nutrition: It is important to follow a healthy diet based on lots of vegetables and legumes and good fat. Avoid processed food and processed carbohydrates. Learn to prepare your own meals. Learn to read labels and avoid high fructose corn syrup, processed chemicals added to increase shelf life and preprepared meals. Avoid fast foods. Learn to eat slowly and plan meals for a week. Try to count calories and be mindful off daily calorie intake. Get into the habit of keeping an eye on your weight by using an appropriate scale. Learn to log exercise and discussed fitness Apps like [employer] which can help keep log off calories taken versus calories burned. Local food should be preferred. Discussed Dirty Dozen Versus Clean Fifteen. Discussed healthy supplements like fish oil, Tumeric, Curcumin, Melatonin, Resveratrol, Probiotics, Vitamin-D, Alpha-Lipoic acid, Vitamin-D and coconut oil. 2. It is important to exercise regularly. Is a good habit to walk at least 30-45 minutes a day. Gentle weightlifting with standard precautions to protect the back. Finding activity like cycling or hiking and get into the habit of engaging in it. Stretching before and after the exercises important. It is also important to contact me if there are any problems like shortness of breath, chest pain, back pain and joint or muscle pain associated with the exercise. 3. Discussed age appropriate screening guidelines. Colonoscopy needs to start at age 50 with stool for occult blood as appropriate. There is a new test that can test for genetic abnormalities in the stool sample. This would not replace a colonoscopy but could be used as a screening tool for patients who do not want a colonoscopy. We discussed the importance of early detection of colon cancer. 4. Discussed current guidelines with respect to breast examination, mammogram and pap smear for early detection of breast and cervical cancer. Patient advised to follow up with these appointments. 5. Discussed safe driving and no use of smart phone while driving 6. Age-appropriate immunizations were discussed. A tetanus booster is needed every 10 years. Flu vaccine is recommended every year just before the start of the flu season. Shingles vaccine is recommended after age 50 but not all insurances cover it. Pneumonia vaccine is given after age 65 unless there are certain comorbidities for which it is started earlier. 7. Diagnostic labs were discussed. These could include CBC CMP and lipids with fasting blood glucose and insulin levels. Vitamin D and hemoglobin A1c testing might be appropriate. 05/07/2025 COVID-19 determined by clinical diagnostic criteria (ICD-10 - U07.1) 74-year-old female with a past medical history of A-fib, eczema, hyperlipidemia presents with a 5-day history of symptoms consistent with viral upper respiratory infection. Patient appears hemodynamically stable physical exam is unremarkable. strep negative RSV negative flu negative, COVID-positive. Spoke about supportive measures including Tylenol, Mucinex and throat lozenges as needed. Patient informed Paxlovid contraindicated based on history of Eliquis. Informed patient of this contraindication and patient agrees to go without Paxlovid at this time as I deem she will improve in a few days with only supportive care. Patient educated on ED protocol and to call the office with any additional concerns. All quetsions answered to patients satisfaction. Patient verbalized understanding of diagnosis and treatments explained. To call sooner prior to next visit it any questions/concerns arise. Case discussed with collaborating physician Miriam Baires who reviewed the assessment and plan. Chart, medications, labs, vital signs reviewed. Dictation was accomplished with the use of [employer] voice recognition software, prone to medical misidentifications and grammatical errors. This is unintentional and the practitioner does try to identify and correct these, but some could still be present. Please do not hesitate to contact practitioner for clarification. 05/07/2025 Acute cough (ICD-10 - R05.1) 74-year-old female with a past medical history of A-fib, eczema, hyperlipidemia presents with a 5-day history of symptoms consistent with viral upper respiratory infection. Patient appears hemodynamically stable physical exam is unremarkable. strep negative RSV negative flu negative, COVID-positive. Spoke about supportive measures including Tylenol, Mucinex and throat lozenges as needed. Patient informed Paxlovid contraindicated based on history of Eliquis. Informed patient of this contraindication and patient agrees to go without Paxlovid at this time as I deem she will improve in a few days with only supportive care. Patient educated on ED protocol and to call the office with any additional concerns. All quetsions answered to patients satisfaction. Patient verbalized understanding of diagnosis and treatments explained. To call sooner prior to next visit it any questions/concerns arise. Case discussed with collaborating physician Miriam Baires who reviewed the assessment and plan. Chart, medications, labs, vital signs reviewed. Dictation was accomplished with the use of [employer] voice recognition software, prone to medical misidentifications and grammatical errors. This is unintentional and the practitioner does try to identify and correct these, but some could still be present. Please do not hesitate to contact practitioner for clarification. 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 #Hyperlipidemia: In the setting of family history of hyperlipidemia in mom. #Eczema: (Psoriasis was diagnosed in 2015, sees team truck driver,Her Skin rash was not improving over the years, her team truck driver suggested biopsy which showed eczema and not [...] on screening mammograms. 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 #Hyperlipidemia: In the setting of family history of hyperlipidemia in mom. #Eczema: (Psoriasis was diagnosed in 2015, sees team truck driver,Her Skin rash was not improving over the years, her team truck driver suggested biopsy which showed eczema and not [...] on screening mammograms. #Never had a screening colonoscopy/discuss ed cologuard kit, Patient declines 05/07/2025 Sore throat (ICD-10 - J02.9) 74-year-old female with a past medical history of A-fib, eczema, hyperlipidemia presents with a 5-day history of symptoms consistent with viral upper respiratory infection. Patient appears hemodynamically stable physical exam is unremarkable. strep negative RSV negative flu negative, COVID-positive. Spoke about supportive measures including Tylenol, Mucinex and throat lozenges as needed. Patient informed Paxlovid contraindicated based on history of Eliquis. Informed patient of this contraindication and patient agrees to go without Paxlovid at this time as I deem she will improve in a few days with only supportive care. Patient educated on ED protocol and to call the office with any additional concerns. All quetsions answered to patients satisfaction. Patient verbalized understanding of diagnosis and treatments explained. To call sooner prior to next visit it any questions/concerns arise. Case discussed with collaborating physician Miriam Baires who reviewed the assessment and plan. Chart, medications, labs, vital signs reviewed. Dictation was accomplished with the use of [employer] voice recognition software, prone to medical misidentifications and grammatical errors. This is unintentional and the practitioner does try to identify and correct these, but some could still be present. Please do not hesitate to contact practitioner for clarification. 06/11/2024 Hypertriglyceridemia (ICD-10 - E78.1) Darleen is a 73-year-old female present today for CPE. #Eczema: Patient followed by dermatology and sees every 6 months. Well-managed. Currently getting Dupixent 200 mg injections. Plan to continue with dermatology recommendations. #Atrial fibrillation: Patient followed by cardiology and has follow-up every 6 months as well. Currently on Eliquis 2.5 mg once a day as well as metoprolol 25 mg twice. Denies any recent episode of atrial fibrillation or experiencing any heart palpitations. Denies any shortness of breath. Plan to continue with cardiology recommendations. # Overactive bladder: Patient prescribed mirabegron 25 mg p.o. once daily states that she was previously prescribed Myrbetriq, which was a smaller supply at the pharmacy. Would like us to prescribe brand-name refill prescription. Otherwise managing well. # Hypertriglyceridemi a: Elevated triglycerides of 187. This is a new finding and labs in the past have had lipids all within normal limits. Patient states that she has been without her Crestor and has since recently began taking it. Recommended a fish oil or niacin supplement. Avoid alcohol consumption. Recommended increase routine exercise as well a well balanced diet increasing fiber, fruits and vegetables and limiting processed foods. Will consider fibrate use if triglycerides continue to be elevated. Plan to continue to monitor and repeat blood work for in 5 months. # Vitamin D deficiency: Low vitamin D of 23.6. Recommended [id number] vitamin D supplement. # Prevention: Patient not up-to-date on influenza. Up-to-date on COVID including boosters. Not up-to-date on pneumonia or shingles. Discussed the importance of the pneumococcal vaccine in preventing pneumonia and hospitalization. Discussed the importance of the shingles vaccine in preventing shingles and has long-lasting complications. Patient defers at this time. Up-to-date on tetanus, 2020. Up-to-date on mammogram, 2023. Up-to-date on colonoscopy. Up-to-date on bone density, 2023. Up-to-date on Pap smear with next scheduled for August 2024. All other labs within normal limits. Plan for patient to repeat blood work including lipids and vitamin D prior to next visit. Follow-up already scheduled for 11/19/2024. Patient seen and examined. Comprehensive discussion was done on the following. 1. Nutrition: It is important to follow a healthy diet based on lots of vegetables and legumes and good fat. Avoid processed food and processed carbohydrates. Prepare your own meals. Read labels and avoid high fructose corn syrup, processed chemicals added to increase shelf life and preprepared meals. Avoid fast foods. Eat slowly and plan meals for a week. Try to count calories and be mindful of daily calorie intake. Get into the habit of keeping an eye on your weight by using an appropriate scale. Learn to log exercise and discussed fitness Apps like [employer]/App[employer] which can help keep log off calories taken versus calories burned. Local food should be preferred. Discussed Dirty Dozen Versus Clean Fifteen. Discussed healthy supplements like fish oil, Tumeric, Curcumin, Melatonin, Resveratrol, Probiotics, Vitamin-D, Alpha-Lipoic acid, Vitamin-D and coconut oil. 2. It is important to exercise regularly. Is a good habit to walk at least 30 minutes a day. Gentle weightlifting with standard precautions to protect the back. Finding activity like cycling or hiking and get into the habit of engaging in it. Stretching before and after the exercises important. It is also important to contact me if there are any problems like shortness of breath, chest pain, back pain and joint or muscle pain associated with the exercise. 3. Discussed age appropriate screening guidelines. Colonoscopy needs to start at age 50 with stool for occult blood as appropriate. There is a new test that can test for genetic abnormalities in the stool sample, Cologuard. This would not replace a colonoscopy but could be used as a screening tool for patients who do not want a colonoscopy. We discussed the importance of early detection of colon cancer. 4. Discussed current PSA screening. PSA screening can be done in most patients between age 50 and 65. However early detection of prostate cancer needs to carefully be balanced with complications with treatment. These include incontinence, impotence etc. Each patient should decide if they would like to have this test. 5. Discussed safe driving and no use of smart phone while driving 6. Age-appropriate immunizations were discussed. A tetanus booster is needed every 10 years. Flu vaccine is recommended every year just before the start of the flu season. Shingles vaccine is recommended after age 50 but not all insurances cover it. Pneumonia vaccine is given after age 65 unless there are certain comorbidities for which it is started earlier. 7. Diagnostic labs were discussed. These could include/not limited to CBC CMP and lipids with fasting blood glucose and insulin levels. Vitamin D and hemoglobin A1c testing might be appropriate. All questions answered to patients satisfaction. Patient verbalized understanding of diagnosis and treatments explained. To call sooner prior to next visit it any questions/concerns arise. Case discussed with collaborating physician Dr. Baires who reviewed the assessment and plan. Chart, medications, labs, vital signs reviewed. Dictation was accomplished with the use of [employer] voice recognition software, prone to medical misidentifications and grammatical errors. This is unintentional and the practitioner does try to identify and correct these, but some could still be present. Please do not hesitate to contact practitioner for clarification. 06/11/2024 Atrial fibrillation, unspecified type (ICD-10 - I48.91) Darleen is a 73-year-old female present today for CPE. #Eczema: Patient followed by dermatology and sees every 6 months. Well-managed. Currently getting Dupixent 200 mg injections. Plan to continue with dermatology recommendations. #Atrial fibrillation: Patient followed by cardiology and has follow-up every 6 months as well. Currently on Eliquis 2.5 mg once a day as well as metoprolol 25 mg twice. Denies any recent episode of atrial fibrillation or experiencing any heart palpitations. Denies any shortness of breath. Plan to continue with cardiology recommendations. # Overactive bladder: Patient prescribed mirabegron 25 mg p.o. once daily states that she was previously prescribed Myrbetriq, which was a smaller supply at the pharmacy. Would like us to prescribe brand-name refill prescription. Otherwise managing well. # Hypertriglyceridemi a: Elevated triglycerides of 187. This is a new finding and labs in the past have had lipids all within normal limits. Patient states that she has been without her Crestor and has since recently began taking it. Recommended a fish oil or niacin supplement. Avoid alcohol consumption. Recommended increase routine exercise as well a well balanced diet increasing fiber, fruits and vegetables and limiting processed foods. Will consider fibrate use if triglycerides continue to be elevated. Plan to continue to monitor and repeat blood work for in 5 months. # Vitamin D deficiency: Low vitamin D of 23.6. Recommended [id number] vitamin D supplement. # Prevention: Patient not up-to-date on influenza. Up-to-date on COVID including boosters. Not up-to-date on pneumonia or shingles. Discussed the importance of the pneumococcal vaccine in preventing pneumonia and hospitalization. Discussed the importance of the shingles vaccine in preventing shingles and has long-lasting complications. Patient defers at this time. Up-to-date on tetanus, 2020. Up-to-date on mammogram, 2023. Up-to-date on colonoscopy. Up-to-date on bone density, 2023. Up-to-date on Pap smear with next scheduled for August 2024. All other labs within normal limits. Plan for patient to repeat blood work including lipids and vitamin D prior to next visit. Follow-up already scheduled for 11/19/2024. Patient seen and examined. Comprehensive discussion was done on the following. 1. Nutrition: It is important to follow a healthy diet based on lots of vegetables and legumes and good fat. Avoid processed food and processed carbohydrates. Prepare your own meals. Read labels and avoid high fructose corn syrup, processed chemicals added to increase shelf life and preprepared meals. Avoid fast foods. Eat slowly and plan meals for a week. Try to count calories and be mindful of daily calorie intake. Get into the habit of keeping an eye on your weight by using an appropriate scale. Learn to log exercise and discussed fitness Apps like [employer] which can help keep log off calories taken versus calories burned. Local food should be preferred. Discussed Dirty Dozen Versus Clean Fifteen. Discussed healthy supplements like fish oil, Tumeric, Curcumin, Melatonin, Resveratrol, Probiotics, Vitamin-D, Alpha-Lipoic acid, Vitamin-D and coconut oil. 2. It is important to exercise regularly. Is a good habit to walk at least 30 minutes a day. Gentle weightlifting with standard precautions to protect the back. Finding activity like cycling or hiking and get into the habit of engaging in it. Stretching before and after the exercises important. It is also important to contact me if there are any problems like shortness of breath, chest pain, back pain and joint or muscle pain associated with the exercise. 3. Discussed age appropriate screening guidelines. Colonoscopy needs to start at age 50 with stool for occult blood as appropriate. There is a new test that can test for genetic abnormalities in the stool sample, Cologuard. This would not replace a colonoscopy but could be used as a screening tool for patients who do not want a colonoscopy. We discussed the importance of early detection of colon cancer. 4. Discussed current PSA screening. PSA screening can be done in most patients between age 50 and 65. However early detection of prostate cancer needs to carefully be balanced with complications with treatment. These include incontinence, impotence etc. Each patient should decide if they would like to have this test. 5. Discussed safe driving and no use of smart phone while driving 6. Age-appropriate immunizations were discussed. A tetanus booster is needed every 10 years. Flu vaccine is recommended every year just before the start of the flu season. Shingles vaccine is recommended after age 50 but not all insurances cover it. Pneumonia vaccine is given after age 65 unless there are certain comorbidities for which it is started earlier. 7. Diagnostic labs were discussed. These could include/not limited to CBC CMP and lipids with fasting blood glucose and insulin levels. Vitamin D and hemoglobin A1c testing might be appropriate. All questions answered to patients satisfaction. Patient verbalized understanding of diagnosis and treatments explained. To call sooner prior to next visit it any questions/concerns arise. Case discussed with collaborating physician Dr. Baires who reviewed the assessment and plan. Chart, medications, labs, vital signs reviewed. Dictation was accomplished with the use of [employer] voice recognition software, prone to medical misidentifications and grammatical errors. This is unintentional and the practitioner does try to identify and correct these, but some could still be present. Please do not hesitate to contact practitioner for clarification. 05/07/2025 Paroxysmal atrial fibrillation (ICD-10 - I48.0) 74-year-old female with a past medical history of A-fib, eczema, hyperlipidemia presents with a 5-day history of symptoms consistent with viral upper respiratory infection. Patient appears hemodynamically stable physical exam is unremarkable. strep negative RSV negative flu negative, COVID-positive. Spoke about supportive measures including Tylenol, Mucinex and throat lozenges as needed. Patient informed Paxlovid contraindicated based on history of Eliquis. Informed patient of this contraindication and patient agrees to go without Paxlovid at this time as I deem she will improve in a few days with only supportive care. Patient educated on ED protocol and to call the office with any additional concerns. All quetsions answered to patients satisfaction. Patient verbalized understanding of diagnosis and treatments explained. To call sooner prior to next visit it any questions/concerns arise. Case discussed with collaborating physician Miriam Baires who reviewed the assessment and plan. Chart, medications, labs, vital signs reviewed. Dictation was accomplished with the use of [employer] voice recognition software, prone to medical misidentifications and grammatical errors. This is unintentional and the practitioner does try to identify and correct these, but some could still be present. Please do not hesitate to contact practitioner for clarification. 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 #Hyperlipidemia: In the setting of family history of hyperlipidemia in mom. #Eczema: (Psoriasis was diagnosed in 2015, sees team truck driver,Her Skin rash was not improving over the years, her team truck driver suggested biopsy which showed eczema and not [...] on screening mammograms. 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 #Hyperlipidemia: In the setting of family history of hyperlipidemia in mom. #Eczema: (Psoriasis was diagnosed in 2016, sees team truck driver,Her Skin rash was not improving over the years, her team truck driver suggested biopsy which showed eczema and not [...] on screening mammograms. #Never had a screening colonoscopy/discuss ed cologuard kit, Patient declines 05/07/2025 Blood pressure check (ICD-10 - Z01.30) 74-year-old female with a past medical history of A-fib, eczema, hyperlipidemia presents with a 5-day history of symptoms consistent with viral upper respiratory infection. Patient appears hemodynamically stable physical exam is unremarkable. strep negative RSV negative flu negative, COVID-positive. Spoke about supportive measures including Tylenol, Mucinex and throat lozenges as needed. Patient informed Paxlovid contraindicated based on history of Eliquis. Informed patient of this contraindication and patient agrees to go without Paxlovid at this time as I deem she will improve in a few days with only supportive care. Patient educated on ED protocol and to call the office with any additional concerns. All quetsions answered to patients satisfaction. Patient verbalized understanding of diagnosis and treatments explained. To call sooner prior to next visit it any questions/concerns arise. Case discussed with collaborating physician Miriam Baires who reviewed the assessment and plan. Chart, medications, labs, vital signs reviewed. Dictation was accomplished with the use of [employer] voice recognition software, prone to medical misidentifications and grammatical errors. This is unintentional and the practitioner does try to identify and correct these, but some could still be present. Please do not hesitate to contact practitioner for clarification. 06/11/2024 Chronic eczema (ICD- 10 - L30.9) Darleen is a 73-year-old female present today for CPE. #Eczema: Patient followed by dermatology and sees every 6 months. Well-managed. Currently getting Dupixent 200 mg injections. Plan to continue with dermatology recommendations. #Atrial fibrillation: Patient followed by cardiology and has follow-up every 6 months as well. Currently on Eliquis 2.5 mg once a day as well as metoprolol 25 mg twice. Denies any recent episode of atrial fibrillation or experiencing any heart palpitations. Denies any shortness of breath. Plan to continue with cardiology recommendations. # Overactive bladder: Patient prescribed mirabegron 25 mg p.o. once daily states that she was previously prescribed Myrbetriq, which was a smaller supply at the pharmacy. Would like us to prescribe brand-name refill prescription. Otherwise managing well. # Hypertriglyceridemi a: Elevated triglycerides of 187. This is a new finding and labs in the past have had lipids all within normal limits. Patient states that she has been without her Crestor and has since recently began taking it. Recommended a fish oil or niacin supplement. Avoid alcohol consumption. Recommended increase routine exercise as well a well balanced diet increasing fiber, fruits and vegetables and limiting processed foods. Will consider fibrate use if triglycerides continue to be elevated. Plan to continue to monitor and repeat blood work for in 5 months. # Vitamin D deficiency: Low vitamin D of 23.6. Recommended elta-bay-vgfjirt vitamin D supplement. # Prevention: Patient not up-to-date on influenza. Up-to-date on COVID including boosters. Not up-to-date on pneumonia or shingles. Discussed the importance of the pneumococcal vaccine in preventing pneumonia and hospitalization. Discussed the importance of the shingles vaccine in preventing shingles and has long-lasting complications. Patient defers at this time. Up-to-date on tetanus, 2020. Up-to-date on mammogram, 2023. Up-to-date on colonoscopy. Up-to-date on bone density, 2023. Up-to-date on Pap smear with next scheduled for August 2024. All other labs within normal limits. Plan for patient to repeat blood work including lipids and vitamin D prior to next visit. Follow-up already scheduled for 11/19/2024. Patient seen and examined. Comprehensive discussion was done on the following. 1. Nutrition: It is important to follow a healthy diet based on lots of vegetables and legumes and good fat. Avoid processed food and processed carbohydrates. Prepare your own meals. Read labels and avoid high fructose corn syrup, processed chemicals added to increase shelf life and preprepared meals. Avoid fast foods. Eat slowly and plan meals for a week. Try to count calories and be mindful of daily calorie intake. Get into the habit of keeping an eye on your weight by using an appropriate scale. Learn to log exercise and discussed fitness Apps like [employer] which can help keep log off calories taken versus calories burned. Local food should be preferred. Discussed Dirty Dozen Versus Clean Fifteen. Discussed healthy supplements like fish oil, Tumeric, Curcumin, Melatonin, Resveratrol, Probiotics, Vitamin-D, Alpha-Lipoic acid, Vitamin-D and coconut oil. 2. It is important to exercise regularly. Is a good habit to walk at least 30 minutes a day. Gentle weightlifting with standard precautions to protect the back. Finding activity like cycling or hiking and get into the habit of engaging in it. Stretching before and after the exercises important. It is also important to contact me if there are any problems like shortness of breath, chest pain, back pain and joint or muscle pain associated with the exercise. 3. Discussed age appropriate screening guidelines. Colonoscopy needs to start at age 50 with stool for occult blood as appropriate. There is a new test that can test for genetic abnormalities in the stool sample, Cologuard. This would not replace a colonoscopy but could be used as a screening tool for patients who do not want a colonoscopy. We discussed the importance of early detection of colon cancer. 4. Discussed current PSA screening. PSA screening can be done in most patients between age 50 and 65. However early detection of prostate cancer needs to carefully be balanced with complications with treatment. These include incontinence, impotence etc. Each patient should decide if they would like to have this test. 5. Discussed safe driving and no use of smart phone while driving 6. Age-appropriate immunizations were discussed. A tetanus booster is needed every 10 years. Flu vaccine is recommended every year just before the start of the flu season. Shingles vaccine is recommended after age 50 but not all insurances cover it. Pneumonia vaccine is given after age 65 unless there are certain comorbidities for which it is started earlier. 7. Diagnostic labs were discussed. These could include/not limited to CBC CMP and lipids with fasting blood glucose and insulin levels. Vitamin D and hemoglobin A1c testing might be appropriate. All questions answered to patients satisfaction. Patient verbalized understanding of diagnosis and treatments explained. To call sooner prior to next visit it any questions/concerns arise. Case discussed with collaborating physician Dr. Baires who reviewed the assessment and plan. Chart, medications, labs, vital signs reviewed. Dictation was accomplished with the use of [employer] voice recognition software, prone to medical misidentifications and grammatical errors. This is unintentional and the practitioner does try to identify and correct these, but some could still be present. Please do not hesitate to contact practitioner for clarification. 06/11/2024 Overactive bladder (ICD-10 - N32.81) Darleen is a 73-year-old female present today for CPE. #Eczema: Patient followed by dermatology and sees every 6 months. Well-managed. Currently getting Dupixent 200 mg injections. Plan to continue with dermatology recommendations. #Atrial fibrillation: Patient followed by cardiology and has follow-up every 6 months as well. Currently on Eliquis 2.5 mg once a day as well as metoprolol 25 mg twice. Denies any recent episode of atrial fibrillation or experiencing any heart palpitations. Denies any shortness of breath. Plan to continue with cardiology recommendations. # Overactive bladder: Patient prescribed mirabegron 25 mg p.o. once daily states that she was previously prescribed Myrbetriq, which was a smaller supply at the pharmacy. Would like us to prescribe brand-name refill prescription. Otherwise managing well. # Hypertriglyceridemi a: Elevated triglycerides of 187. This is a new finding and labs in the past have had lipids all within normal limits. Patient states that she has been without her Crestor and has since recently began taking it. Recommended a fish oil or niacin supplement. Avoid alcohol consumption. Recommended increase routine exercise as well a well balanced diet increasing fiber, fruits and vegetables and limiting processed foods. Will consider fibrate use if triglycerides continue to be elevated. Plan to continue to monitor and repeat blood work for in 5 months. # Vitamin D deficiency: Low vitamin D of 23.6. Recommended [id number] vitamin D supplement. # Prevention: Patient not up-to-date on influenza. Up-to-date on COVID including boosters. Not up-to-date on pneumonia or shingles. Discussed the importance of the pneumococcal vaccine in preventing pneumonia and hospitalization. Discussed the importance of the shingles vaccine in preventing shingles and has long-lasting complications. Patient defers at this time. Up-to-date on tetanus, 2020. Up-to-date on mammogram, 2023. Up-to-date on colonoscopy. Up-to-date on bone density, 2023. Up-to-date on Pap smear with next scheduled for August 2024. All other labs within normal limits. Plan for patient to repeat blood work including lipids and vitamin D prior to next visit. Follow-up already scheduled for 11/19/2024. Patient seen and examined. Comprehensive discussion was done on the following. 1. Nutrition: It is important to follow a healthy diet based on lots of vegetables and legumes and good fat. Avoid processed food and processed carbohydrates. Prepare your own meals. Read labels and avoid high fructose corn syrup, processed chemicals added to increase shelf life and preprepared meals. Avoid fast foods. Eat slowly and plan meals for a week. Try to count calories and be mindful of daily calorie intake. Get into the habit of keeping an eye on your weight by using an appropriate scale. Learn to log exercise and discussed fitness Apps like [employer] which can help keep log off calories taken versus calories burned. Local food should be preferred. Discussed Dirty Dozen Versus Clean Fifteen. Discussed healthy supplements like fish oil, Tumeric, Curcumin, Melatonin, Resveratrol, Probiotics, Vitamin-D, Alpha-Lipoic acid, Vitamin-D and coconut oil. 2. It is important to exercise regularly. Is a good habit to walk at least 30 minutes a day. Gentle weightlifting with standard precautions to protect the back. Finding activity like cycling or hiking and get into the habit of engaging in it. Stretching before and after the exercises important. It is also important to contact me if there are any problems like shortness of breath, chest pain, back pain and joint or muscle pain associated with the exercise. 3. Discussed age appropriate screening guidelines. Colonoscopy needs to start at age 50 with stool for occult blood as appropriate. There is a new test that can test for genetic abnormalities in the stool sample, Cologuard. This would not replace a colonoscopy but could be used as a screening tool for patients who do not want a colonoscopy. We discussed the importance of early detection of colon cancer. 4. Discussed current PSA screening. PSA screening can be done in most patients between age 50 and 65. However early detection of prostate cancer needs to carefully be balanced with complications with treatment. These include incontinence, impotence etc. Each patient should decide if they would like to have this test. 5. Discussed safe driving and no use of smart phone while driving 6. Age-appropriate immunizations were discussed. A tetanus booster is needed every 10 years. Flu vaccine is recommended every year just before the start of the flu season. Shingles vaccine is recommended after age 50 but not all insurances cover it. Pneumonia vaccine is given after age 65 unless there are certain comorbidities for which it is started earlier. 7. Diagnostic labs were discussed. These could include/not limited to CBC CMP and lipids with fasting blood glucose and insulin levels. Vitamin D and hemoglobin A1c testing might be appropriate. All questions answered to patients satisfaction. Patient verbalized understanding of diagnosis and treatments explained. To call sooner prior to next visit it any questions/concerns arise. Case discussed with collaborating physician Dr. Baires who reviewed the assessment and plan. Chart, medications, labs, vital signs reviewed. Dictation was accomplished with the use of [employer] voice recognition software, prone to medical misidentifications and grammatical errors. This is unintentional and the practitioner does try to identify and correct these, but some could still be present. Please do not hesitate to contact practitioner for clarification. 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 #Hyperlipidemia: In the setting of family history of hyperlipidemia in mom. #Eczema: (Psoriasis was diagnosed in 2015, sees team truck driver,Her Skin rash was not improving over the years, her team truck driver suggested biopsy which showed eczema and not psoriasis) she is on dupixent since early 2021 and her skin lesions are healing very well. #Atrial fibrillation, diagnosed in 2017, sees cardiology, on eliques and metoprolol, and [...] on screening mammograms. #Never had a screening colonoscopy/discuss ed cologuard kit, Patient declines Plan Of Treatment Pending Test Test Name Order Date Mammogram 05/09/2023 Bone Density 05/09/2023 Bone Density 11/19/2024 COMPREHENSIVE METABOLIC PANEL 01/18/2021 LIPID PANEL 01/18/2021 Cologuard 10/19/2020 LIPID PANEL, STANDARD 01/21/2022 LIPID PANEL, STANDARD 08/31/2022 LIPID PANEL, STANDARD 05/09/2023 LIPID PANEL, STANDARD 06/11/2024 LIPID PANEL, STANDARD 11/07/2023 LIPID PANEL, STANDARD 11/19/2024 LIPID PANEL, STANDARD 05/21/2025 COMPREHENSIVE METABOLIC PANEL 05/21/2025 COMPREHENSIVE METABOLIC PANEL 11/19/2024 COMPREHENSIVE METABOLIC PANEL 11/07/2023 COMPREHENSIVE METABOLIC PANEL 08/31/2022 COMPREHENSIVE METABOLIC PANEL 05/09/2023 COMPREHENSIVE METABOLIC PANEL 01/21/2022 CBC (INCLUDES DIFF/PLT) 01/21/2022 CBC (INCLUDES DIFF/PLT) 08/31/2022 CBC (INCLUDES DIFF/PLT) 11/07/2023 CBC (INCLUDES DIFF/PLT) 11/19/2024 CBC (INCLUDES DIFF/PLT) 05/21/2025 URINALYSIS, COMPLETE 05/21/2025 VITAMIN D,25-OH,TOTAL,IA 11/19/2024 VITAMIN D,25-OH,TOTAL,IA 06/11/2024 VITAMIN D,25-OH,TOTAL,IA 11/07/2023 VITAMIN D,25-OH,TOTAL,IA 05/09/2023 VITAMIN D,25-OH,TOTAL,IA 08/31/2022 VITAMIN D,25-OH,TOTAL,IA 01/21/2022 Vitamin D, [id number] 05/21/2025 PPC Rapid Covid/Strep/Flu/RSV 05/07/2025 PPC Strep Test 05/07/2025 Next Appt Details Provider Name:MAURIZIO BAIRES, 09:15:00 AM, [address], [place], [id number], Insurance Providers Payer Name Payer Address Payer Phone Subscriber Number Group Number Insured Name Patient Relationship to Insured Coverage Start Date Coverage End Date [employer] [place] [employer] Ad[employer] 1 [place], [place] [id number] [phone] [id number] DARLEEN APODACA Self - patient is the insured 1 Medical (General) History Medical History History ICD Code afib eczema overactive bladder (OAB) Surgical History Surgery Date(Month/Year) hysterectomy metal patrice right leg Hospitalization History Reason Date(Month/Year) afib 2018
[2025-06-03 01:25] VITALS: O2SAT 90
--- NOTE | 2025-06-03 01:31 | PC.RT ---
Patient received albuterol neb at 0010, pt unable to tolerate neb started coughing uncontrollably, neb stopped mcc. Patient has no respiratory history and states she never received nebulizers or inhalers prior to [facility].
[2025-06-03] MEDS: Magnesium Sulfate/H2O 2 GM/50 ML PIGGYBACK IV (01:37)
[2025-06-03 03:12] LABS: COVID-19 Test Negative (Negative); IDNOW Serial# 16C4AD1C
[2025-06-03 03:13] LABS: IDNOW Serial# 152EDE1D; Influenza B2 Negative (Negative)
[2025-06-03 03:20] LABS: D Dimer High Sensitivity < 150 NG/ML
[2025-06-03 03:22] VITALS: BP 133/80; PULSE 73; RESP 19; TEMP 36.5; O2SAT 95
[2025-06-03 03:49] VITALS: BP 142/83; PULSE 70; RESP 16; TEMP 36.5; O2SAT 95
== END 2025-06-03 03:52 | disposition home or self-care (01) ==
PROVIDERS: Student in an Organized Health Care Education/Training Program; Emergency Provider Emergency Medicine; PCP Internal Medicine
DX: J20.9 Acute bronchitis, unspecified (principal); I48.91 Unspecified atrial fibrillation; R06.02 Shortness of breath; I45.10 Unspecified right bundle-branch block; R07.89 Other chest pain; Z86.16 Personal history of COVID-19; Z79.01 Long term (current) use of anticoagulants; Z79.899 Other long term (current) drug therapy; Z11.52 Encounter for screening for COVID-19
CPT/HCPCS: 36415; 71046; 80053; 83735; 83880; 84484; 85025; 85379; 85610; 87502; 87635; 93005; 94640; 96365; 96366; 99284; 99285; J3475

== ENCOUNTER → 2025-06-02 23:22 | Outpatient (BNV) | payer MEDICARE, SELFPAY | PROVIDERS: Emergency Provider Emergency Medicine; PCP Internal Medicine; Visit Provider Internal Medicine Cardiovascular Disease | DX: I45.10 Unspecified right bundle-branch block (principal) | CPT/HCPCS: 93010 ==

== ENCOUNTER → 2025-06-02 23:38 | Outpatient (BNV) | payer MEDICARE, SELFPAY | PROVIDERS: Emergency Provider Student in an Organized Health Care Education/Training Program; PCP Internal Medicine; Visit Provider Radiology Diagnostic Radiology | DX: R06.02 Shortness of breath (principal) | CPT/HCPCS: 71046 ==

== ENCOUNTER 2025-07-25 18:31 | Emergency (ER) | payer MEDICARE, SELFPAY ==
--- NOTE | ~2025-07-25 | CT_ITS ---
CLINICAL HISTORY: head strike, pain CT head without contrast Comparison: CT/REG/SR - CT HEAD WITHOUT IV CONTRAST - 07/30/23 15:01 EST Findings: No intra-axial mass, midline shift, hydrocephalus, or acute hemorrhage. No significant atrophy-like change or white matter disease. There is no sinus or mastoid fluid. The orbits are unremarkable. No skull fracture. IMPRESSION: 1. No acute intracranial findings. This document has been electronically signed by: Toni Longo MD on 07/25/2025 20:10:08
[2025-07-25 18:34] VITALS: BP 184/85; PULSE 88; RESP 18; TEMP 36.3; O2SAT 97; BMI 17.4
--- NOTE | 2025-07-25 18:37 | ED.GENADULT ---
HPI - General Adult General Chief complaint: Head Injury Stated complaint: head injury (fall) Time Seen by Provider: 07/25/25 21:04 Source: patient Mode of arrival: ambulatory Limitations: no limitations History of Present Illness ED Provider: Dr. Jo-Ann Rosenberg HPI narrative: Patient comes to the emergency room complaining of a closed head injury. Patient states that today she was moving some furniture, fell backwards and hit the back of her head with some bed rails. Patient states that she has a bump in the back of the head, did not lose consciousness, states that she feels slightly dizzy, but has no other symptoms. Patient denies any severe headache, denies any neck pain. Patient states that she takes Eliquis and use wants to make sure that she does not have a brain bleed Related Data Previous Rx's ?Medication ?Instructions ?Recorded albuterol sulfate 90 mcg/actuation 2 inh inhalation Q4H PRN shortness 06/03/25 breath activated powder inhaler of breath #1 ea prednisone 50 mg tablet 50 mg PO DAILY 5 days #5 tabs 06/03/25 Allergies Allergy/AdvReac Type Severity Reaction Status Date / Time Penicillins Allergy Hives Verified 07/25/25 18:36 Review of Systems Review of Systems: Constitutional : No Weight loss, No Fever, No Chills, No Night Sweats, No Fatigue, No Malaise ENT/Mouth : No Hearing loss, No Ear Pain, No Nasal Congestion, No Sinus Pain, No Hoarseness, No sore throat, No Rhinorrhea, No Swallowing Difficulty Eyes: No Eye Pain, No Swelling, No Redness, No Foreign Body, No Discharge, No Vision Changes Cardiovascular : No Chest Pain, No SOB, No Dyspnea on Exertion, No Orthopnea, No Edema, No Palpitations Respiratory : No Cough, No Sputum, No Wheezing, No Smoke Exposure, No Dyspnea Gastrointestinal : No Nausea, No Vomiting, No Diarrhea, No Constipation, No abdominal Pain, No Hematochezia, No Melena Genitourinary : no irregular bleeding, No Dysuria, No Urinary Frequency, No Hematuria, No Urinary Incontinence, No Urgency, No Flank Pain, No Urinary Flow Changes, No Hesitancy Musculoskeletal : No joint pain, No Myalgias, No Joint Swelling Skin : Complaining of small ecchymosis on the back of the head in the scalp Neuro : No Weakness, No Numbness, No Paresthesias, No Loss of Consciousness, complaining of slight No Headache Psych : No Anxiety/Panic, No Depression, No SI/HI/AH/VH, No Social Issues, Heme/Lymph: No Bruising, No Bleeding,No Lymphadenopathy Endocrine : No Polyuria, No Polydipsia, No Temperature Intolerance [facility] Past Medical History Medical History 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 Oriented X3. No acute distress. Eyes: Pupils equal, round and reactive to light. ENT: Pharynx normal. Neck: Normal inspection. Neck supple. No lymph nodes noted. No crepitus, normal flexion and extension, no C-spine tenderness, no palpable step-offs CVS: Normal heart rate and rhythm. Pulses normal. Normal S1 and S2 Respiratory: No respiratory distress. Breath sounds normal. No Wheezing. No rales Abdomen: Soft and nontender. No rigidity. No distention. Skin: Skin warm and dry. Normal skin color. Normal skin turgor. In the back of the head, there is 3 cm x 3 cm hematoma, no abrasion or laceration. Extremities: No lower extremity edema. No Lacerations. No Rash Neuro: Oriented X 3. No motor deficit. No sensory deficit. Moving all extremities. No slurred speech. CN 2 through 12 grossly intact Psych: calm, cooperative, normal affect Vital Signs: Vital Signs - 24 hr 07/25/25 18:34 Temperature 97.3 F Pulse Rate 88 Respiratory Rate 18 Blood Pressure 184/85 H Pulse Oximetry 97 Oxygen Delivery Method Room Air BMI result Body Mass Index 17.4 Course Course Course Narrative: Rapid medical examination performed in triage by Hellen Wilson PA-C: Patient is a 74 year old assigned female at presenting to the emergency department with a headache after a head injury. Patient states she got hit in the head with a bed rail and is on Elqiuis. Detailed physical exam and review of systems are deferred to the behavioral health clinician. Imaging ordered. Patient placed back in the waiting room pending room availability and results. Medical Decision Making Medical Decision Making MDM Narrative: CT scan of the head does not show any acute abnormality. I discussed the CT scan findings with the patient, patient feels reassured and states that she feels ready to go home Patient states that she has enough Tylenol at home Independent Interpretation I performed an independent interpretation of an: CT Scan Radiology Impression Discussion of test interpretation with radiology: I have reviewed the radiologist's reading. Radiologist Impression: No intra-axial mass, midline shift, hydrocephalus, or acute hemorrhage. No significant atrophy-like change or white matter disease. There is no sinus or mastoid fluid. The orbits are unremarkable. No skull fracture. IMPRESSION: 1. No acute intracranial findings. Discharge Plan Discharge Clinical Impression: Closed head injury Patient Disposition: Home, Self-Care Instructions: Head Injury (ED) Additional Instructions: Please follow-up with your primary care physician tomorrow. If you have any worsening or new symptoms, please return to the emergency room or call 911 Prescriptions: No Action prednisone 50 mg tablet 50 mg PO DAILY 5 Days Qty: 5 0RF albuterol sulfate 90 mcg/actuation aerosol powdr breath activated 2 inh inhalation Q4H PRN (Reason: shortness of breath) Qty: 1 0RF Print Language: Kiswahili
--- OUTSIDE RECORDS SUMMARY | 2025-07-25 21:21 | XMS_ITS | Patient Health Record ---
Author Organization [facility] [address] Address [address] [place] [address] Care Team Providers Care Bench Lathe Operator Name Role Phone MAURIZIO BAIRES Unavailable [phone] SONALI CEBALLOS Unavailable [phone] SIMONE NEWBY Unavailable [phone] ELY KIM Unavailable [phone] Wilfrido Núñez Unavailable [phone] Allergies Allergen (clinical drug ingredient) Drug/Non Drug Allergy documented on EMR Reaction Allergy Type Onset Date Status Mold shortness of breath Allergy Active Penicillin rash Drug Allergy Active Reason For Referral No Information Medications Medication SIG (Take, Route, Frequency, Duration) Notes Start Date End Date Status Albuterol Sulfate HFA 108 (90 Base) MCG/ACT Aerosol Solution 1 puff as needed Inhalation every 4 hrs; Duration: 30 days 06/11/2025 Active Metoprolol Tartrate 25 MG Tablet 1 tablet with food Orally Twice a day Active Estradiol 0.0375 MG/24HR Patch Twice Weekly 1 patch to skin Transdermal Two times a Week Active Dupixent 200 MG/1.14ML Solution Prefilled Syringe as directed Subcutaneous Act myles Mirabegron ER 25 MG Tablet Extended Release 24 Hour TAKE 1 TABLET BY MOUTH EVERY DAY FOR 90 DAYS; Duration: 90 Active Montelukast Sodium 10 MG Tablet 1 tablet Orally Once a day; Duration: 30 day(s) Active Crestor 10 MG Tablet 1 tablet Orally Onc e a day; Duration: 90 days Active Fluticasone Propionate 50 MCG/ACT Suspension SPRAY SPRAY 1 SPRAY INTO EACH NOSTRIL EVERY DAY FOR 30 DAYS; Duration: 8 as needed Active Eliquis 2.5 MG Tablet as directed Orally Active Immunizations Vaccine Route Administration Date Status Comme mikey Pfizer Covid-19 Vaccine Unknown 10/20/2020 Administered Pfizer Covid-19 Vaccine Unknown 11/10/2020 Administered Pfizer Covid-19 Vaccine Unknown 05/27/2021 Administered Social History Section Notes: quit ciggerettes in 2002 quit ciggerettes in 2002 quit ciggerettes in 2002 quit ciggerettes in 2002 quit ciggerettes in 2002 quit ciggerettes in 2002 quit cigarettes in 2002 quit ciggerettes in 2002 quit ciggerettes in 2002 quit cigarettes in 2002 quit ciggerettes in 2002 quit ciggerettes in 2002 quit ciggerettes in 2002 quit ciggerettes in 2002 quit cigarettes in 2002 quit cigarettes in 2002 quit ciggerettes in 2002 quit ciggerettes in 2002 quit ciggerettes in 2002 Problems Problem Type SNOMED Code ICD Code [...] (U07.1) Active confirmed Vital Signs Heart Rate 61 /min 06/11/2025 Oximetry 96 % 06/11/2025 Blood pressure diastolic 70 mm Hg 06/11/2025 Height 65 in 06/11/2025 Blood pressure systolic 110 mm Hg 06/11/2025 Weight 119.4 lbs 06/11/2025 BMI 19.87 kg/m2 06/11/2025 Encounters Encounter Location Date Provider Diagnosis [facility] [address] [place] [address] 08/21/2024 RADHACRISTOBAL AYDEN [facility] [address] [place] [address] 09/24/2024 RADHACRISTOBAL AYDEN [facility] [address] [place], [place] 09/24/2024 RADHACRISTOBAL AYDEN Hyperlipidemia, unspecified E78.5 [facility] [address] [place] [address] 10/04/2024 MAURIZIO BAIRES [facility] [address] [place] [address] 12/03/2024 RADHACRISTOBAL AYDEN [facility] [address] [place] [address] 12/30/2024 RADHACRISTOBAL AYDEN [facility] [address] [place], [place] 02/27/2025 RADHACRISTOBAL ADYEN [facility] [address] [place], [place] 05/07/2025 MAURIZIO BAIRES [facility] [address] [place], [place] 05/07/2025 [place]ido [place] [facility] [address] [place] [address] 05/15/2025 Wilfrido [place] [facility] [address] [place], [place] 06/04/2025 SIMONE KEYONNA [facility] [address] [place] [address] 06/11/2025 MAURIZIO PILLAIAN [facility] [address] [place], [place] 05/07/2025 Wilfrido [place] Acute cough R05.1 ; COVID-19 determined by clinical diagnostic criteria U07.1 ; Sore throat J02.9 ; Paroxysmal atrial fibrillation I48.0 and Blood pressure check Z01.[address] [facility] [address] [place] [address] 05/21/2025 MAURIZIO BAIRES Hyperlipidemia, unspecified E78.5 ; Atrial fibrillation, unspecified type I48.91 ; Eczema, unspecified type L30.9 ; Dry cough R05.8 and Vitamin D deficiency E55.[address] [facility] [address] [place] [address] 06/11/2025 MAURIZIO BAIRES Bronchospasm J98.01 ; Redness of right eye H57.89 ; Bronchitis J40 ; Atrial fibrillation, unspecified type I48.91 and Cough R05.[address] [facility] [address] [place] [address] 11/19/2024 MAURIZIO BAIRES Adult general medica l exam Z00.00 Assessments Encounter Date Diagnosis (ICD Code) Assessment Notes Treatment Notes Treatment Clinical Notes Section Notes 11/19/2024 Adult general medical exam (ICD-10 - Z00.00) Patient seen and [...] log exercise and discussed fitness Apps like [employer] which can help keep log off calories [...] and hemoglobin A1c testing might be appropriate. 06/11/2025 Bronchospasm (ICD-10 - J98.01) Detailed evaluation of the ER notes. Patient was seen in the ER on June 03, 2025 with a clinical impression and treatment for acute bronchitis with bronchospasm in the setting of recent diagnosis of COVID and chronic A-fib on Eliquis. Currently she is asymptomatic. She also has off-and-on redness/broken capillariesin her eye,has been evaluated by the prosthetic aides teacher in the past. She gets these episodes 2 or 3 times a year. She is on Eliquis which might be a trigger 06/11/2025 Redness of right eye (ICD-10 - H57.89) Detailed evaluation of the ER notes. Patient was seen in the ER on June 03, 2025 with a clinical impression and treatment for acute bronchitis with bronchospasm in the setting of recent diagnosis of COVID and chronic A-fib on Eliquis. Currently she is asymptomatic. She also has off-and-on redness/broken capillariesin her eye,has been evaluated by the prosthetic aides teacher in the past. She gets these episodes 2 or 3 times a year. 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 #Hyperlipidemia: In the setting of family history of hyperlipidemia in mom. #Eczema: (Psoriasis was diagnosed in 2016, sees crm marketing executive,Her Skin rash was not improving over the years, her crm marketing executive suggested biopsy which showed eczema and not [...] had a screening colonoscopy/discussed cologuard kit, Patient declines 05/07/2025 COVID-19 determined by clinical diagnostic criteria [...] Dictation was accomplished with the use of [employer] voice recognition software, prone to medical misidentifications [...] Dictation was accomplished with the use of [employer] voice recognition software, prone to medical misidentifications and grammatical errors. This is unintentional and the practitioner does try to identify and correct these, but some could still be present. Please do not hesitate to contact practitioner for clarification. 09/24/2024 Hyperlipidemia, unspecified (ICD-10 - E78.5) 05/07/2025 Sore throat (ICD-10 - J02.9) 74-year-old [...] Dictation was accomplished with the use of [employer] voice recognition software, prone to medical misidentifications and grammatical errors. This is unintentional and the practitioner does try to identify and correct these, but some could still be present. Please do not hesitate to contact practitioner for clarification. 06/11/2025 Bronchitis (ICD-10 - J40) Detailed evaluation of the ER notes. Patient was seen in the ER on June 03, 2025 with a clinical impression and treatment for acute bronchitis with bronchospasm in the setting of recent diagnosis of COVID and chronic A-fib on Eliquis. Currently she is asymptomatic. She also has off-and-on redness/broken capillariesin her eye,has been evaluated by the prosthetic aides teacher in the past. She gets these episodes 2 or 3 times a year. 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 #Hyperlipidemia: In the setting of family history of hyperlipidemia in mom. #Eczema: (Psoriasis was diagnosed in 2015, sees crm marketing executive,Her Skin rash was not improving over the years, her crm marketing executive suggested biopsy which showed eczema and not [...] had a screening colonoscopy/discussed cologuard kit, Patient declines 06/11/2025 Atrial fibrillation, unspecified type (ICD-10 - I48.91) Detailed evaluation of the ER notes. Patient was seen in the ER on June 03, 2025 with a clinical impression and treatment for acute bronchitis with bronchospasm in the setting of recent diagnosis of COVID and chronic A-fib on Eliquis. Currently she is asymptomatic. She also has off-and-on redness/broken capillariesin her eye,has been evaluated by the prosthetic aides teacher in the past. She gets these episodes 2 or 3 times a year. 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 #Hyperlipidemia: In the setting of family history of hyperlipidemia in mom. #Eczema: (Psoriasis was diagnosed in 2015, sees crm marketing executive,Her Skin rash was not improving over the years, her crm marketing executive suggested biopsy which showed eczema and not [...] had a screening colonoscopy/discussed cologuard kit, Patient declines 05/07/2025 Paroxysmal atrial fibrillation (ICD-10 - I48.0) [...] Dictation was accomplished with the use of [employer] voice recognition software, prone to medical misidentifications and grammatical errors. This is unintentional and the practitioner does try to identify and correct these, but some could still be present. Please do not hesitate to contact practitioner for clarification. 05/07/2025 Blood pressure check (ICD-10 - Z01.30) [...] Dictation was accomplished with the use of [employer] voice recognition software, prone to medical misidentifications and grammatical errors. This is unintentional and the practitioner does try to identify and correct these, but some could still be present. Please do not hesitate to contact practitioner for clarification. 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 #Hyperlipidemia: In the setting of family history of hyperlipidemia in mom. #Eczema: (Psoriasis was diagnosed in 2015, sees crm marketing executive,Her Skin rash was not improving over the years, her crm marketing executive suggested biopsy which showed eczema and not [...] had a screening colonoscopy/discussed cologuard kit, Patient declines 06/11/2025 Cough (ICD-10 - R05.9) Detailed evaluation of the ER notes. Patient was seen in the ER on June 03, 2025 with a clinical impression and treatment for acute bronchitis with bronchospasm in the setting of recent diagnosis of COVID and chronic A-fib on Eliquis. Currently she is asymptomatic. She also has off-and-on redness/broken capillariesin her eye,has been evaluated by the prosthetic aides teacher in the past. She gets these episodes 2 or 3 times a year. 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 #Hyperlipidemia: In the setting of family history of hyperlipidemia in mom. #Eczema: (Psoriasis was diagnosed in 2015, sees crm marketing executive,Her Skin rash was not improving over the years, her crm marketing executive suggested biopsy which showed eczema and not [...] had a screening colonoscopy/discussed cologuard kit, Patient declines Plan Of Treatment Pending Test Test Name Order Date Mammogram 05/09/2023 Bone Density 05/09/2023 Bone Density 11/19/2024 COMPREHENSIVE METABOLIC PANEL 01/18/2021 LIPID PANEL 01/18/2021 Cologuard 10/19/2020 LIPID PANEL, STANDARD 01/21/2022 LIPID PANEL, STANDARD 05/09/2023 LIPID PANEL, STANDARD 08/31/2022 LIPID PANEL, STANDARD 11/07/2023 LIPID PANEL, STANDARD 05/21/2025 LIPID PANEL, STANDARD 11/19/2024 LIPID PANEL, STANDARD 06/11/2024 COMPREHENSIVE METABOLIC PANEL 05/21/2025 COMPREHENSIVE METABOLIC PANEL 11/19/2024 COMPREHENSIVE METABOLIC PANEL 11/07/2023 COMPREHENSIVE METABOLIC PANEL 05/09/2023 COMPREHENSIVE METABOLIC PANEL 08/31/2022 COMPREHENSIVE METABOLIC PANEL 01/21/2022 CBC (INCLUDES DIFF/PLT) 01/21/2022 CBC (INCLUDES DIFF/PLT) 08/31/2022 CBC (INCLUDES DIFF/PLT) 11/07/2023 CBC (INCLUDES DIFF/PLT) 11/19/2024 CBC (INCLUDES DIFF/PLT) 05/21/2025 URINALYSIS, COMPLETE 05/21/2025 VITAMIN D,25-OH,TOTAL,IA 11/07/2023 VITAMIN D,25-OH,TOTAL,IA 08/31/2022 VITAMIN D,25-OH,TOTAL,IA 01/21/2022 VITAMIN D,25-OH,TOTAL,IA 05/09/2023 VITAMIN D,25-OH,TOTAL,IA 06/11/2024 VITAMIN D,25-OH,TOTAL,IA 11/19/2024 Vitamin D, [id number] 05/21/2025 [facility] Rapid Covid/Strep/Flu/RSV 05/07/2025 [facility] Strep Test 05/07/2025 Next Appt Details Provider Name:MAURIZIO BAIRES, 09:15:00 AM, [address], [place], [address], Insurance Providers Payer Name Payer Address Payer Phone Subscriber Number Group Number Insured Name Patient Relationship to Insured Coverage Start Date Coverage End Date [employer] Medicare Advantage [address] [place] [address] [phone] [id number] KEVIN APODACA Self - patient is the insured Medical (General) History Medical History History ICD Code afib eczema overactive bladder (OAB) Surgical History Surgery Date(Month/Year) hysterectomy metal patrice right leg Hospitalization History Reason Date(Month/Year) afib 05/2025 afib 2019
[2025-07-25 21:47] VITALS: BP 184/85; PULSE 88; RESP 18; TEMP 36.3; O2SAT 97
== END 2025-07-25 21:48 | disposition home or self-care (01) ==
PROVIDERS: Emergency Provider Emergency Medicine; PCP Internal Medicine
DX: S09.90XA Unspecified injury of head, initial encounter (principal); W01.190A Fall on same level from slipping, tripping and stumbling with subsequent striking against furniture, initial encounter; Y93.E9 Activity, other interior property and clothing maintenance; Y92.009 Unspecified place in unspecified non-institutional (private) residence as the place of occurrence of the external cause; Y99.8 Other external cause status
CPT/HCPCS: 70450; 99282; 99284; 99285

== ENCOUNTER → 2025-07-25 18:38 | Outpatient (BNV) | payer MEDICARE, SELFPAY | PROVIDERS: PCP Internal Medicine; Visit Provider Radiology Diagnostic Radiology | DX: S09.90XA Unspecified injury of head, initial encounter (principal) | CPT/HCPCS: 70450 ==